=== PATIENT | male | born 1945 | race Caucasian/White ===

== ENCOUNTER 2018-02-15 00:22 | Emergency (ER) | payer OTHER ==
[2018-02-15 00:49] VITALS: BMI 32.5
--- NOTE | 2018-02-15 01:32 | PDOC ---
History of Present Illness - General Chief Complaint: Blood Pressure Problem Stated Complaint: BLOOD PRESSURE PROBLEM Time Seen by Provider: 02/15/18 01:29 History Source: Patient Exam Limitations: No Limitations - History of Present Illness Timing/Duration: momentarily (this 72 yo male ran out of his metoptolol and came to the ER) Past History - Past Medical History Home Medications: Ambulatory Orders Metoprolol Succinate 50 mg PO DAILY #5 tab.er.24h MDD 1 tab 02/15/18 - Suicide/Smoking/Psychosocial Hx Smoking History: Never smoked Have you smoked in the past 12 months: No Hx Alcohol Use: No Drug/Substance Use Hx: No Review of Systems - Review of Systems Able to Perform ROS?: Yes Is the patient limited French proficient: No Constitutional: No: Symptoms Reported, See HPI, Chills, Diaphoresis, Fever, Loss of Appetite, Malaise, Night Sweats, Weakness, Weight Stable, Unintentional Wgt. Loss, Unexplained wgt Loss, Other HEENTM: No: Symptoms Reported, See HPI, Eye Pain, Blurred Vision, Tearing, Recent change in vision, Double Vision, Cataracts, Ear Pain, Ocular Prothesis, Ear Discharge, Nose Pain, Nose Congestion, Tinnitus, Nose Bleeding, Hearing Loss , Throat Pain, Throat Swelling, Mouth Pain, Dental Problems, Difficulty Swallowing, Mouth Swelling, Other Respiratory: No: Symptoms reported, See HPI, Cough, Orthopnea, Shortness of Breath, SOB with Exertion, SOB at Rest, Stridor, Wheezing, Productive cough, Hemoptysis, Other Cardiac (ROS): No: Symptoms Reported, See HPI, Chest Pain, Edema, Irregular Heart Rate, Lightheadedness, Palpitations, Syncope, Chest Tightness, Other ABD/GI: No: Symptoms Reported, See HPI, Abdominal Distended, Abd. Pain w/ defecation, Blood Streaked Bowels, Constipated, Diarrhea, Difficulty Swallowing , Nausea, Poor Appetite, Poor Fluid Intake, Rectal Bleeding, Vomiting, Indigestion, Abdominal cramping, Tarry Stools, Other Musculoskeletal: No: Symptoms Reported, See HPI, Back Pain, Gout, Joint Pain, Joint Swelling, Muscle Pain, Muscle Weakness, Neck Pain, Joint Stiffness, Other Integumentary: No: Symptoms Reported, See HPI, Bruising, Change in Color, Change in Hair/Nails, Dryness, Erythema, Flushing, Lesions, Lumps, Pallor, Pruritus, Rash, Sweating, Other Neurological: No: Symptoms reported, See HPI, Headache, Numbness, Paresthesia, Pre-Existing Deficit, Seizure, Tingling, Tremors, Weakness, Unsteady Gait, Ataxia, Dizziness, Other *Physical Exam - Vital Signs Last Vital Signs Temp Pulse Resp BP Pulse Ox 98.2 F 70 20 174/81 H 100 02/15/18 00:42 02/15/18 00:42 02/15/18 00:42 02/15/18 00:42 02/15/18 00:42 - Physical Exam General Appearance: Yes: Nourished, Appropriately Dressed HEENT: positive: Normal Voice Neck: positive: Supple Respiratory/Chest: positive: Lungs Clear Cardiovascular: positive: Regular Rhythm, Regular Rate Gastrointestinal/Abdominal: positive: Soft Musculoskeletal: positive: Normal Inspection Extremity: positive: Normal Inspection Integumentary: positive: Normal Color, Warm Neurologic: positive: Fully Oriented, Alert, Motor Strength 5/5 Moderate Sedation - Procedure Monitoring Vital Signs: Procedure Monitoring Vital Signs Temperature 98.2 F 02/15/18 00:42 Pulse Rate 70 02/15/18 00:42 Respiratory Rate 20 02/15/18 00:42 Blood Pressure 174/81 H 02/15/18 00:42 O2 Sat by Pulse Oximetry (%) 100 02/15/18 00:42 Medical Decision Making - Medical Decision Making 02/15/18 01:33 This 72-year-old male who in out of his blood pressure medicines and called his primary care physician. He is scheduled for cystoscopy tomorrow and his primary care physician told him he had to take his blood pressure medicine tonight, and told to go to the emergency department The patient does not have any acute shortness of breath, chest pain, severe headache, nausea, vomiting or acute visual changes IMP essential hypertension *DC/Admit/Observation/Transfer Diagnosis at time of Disposition: Essential hypertension - Discharge Dispostion Disposition: HOME Condition at time of disposition: Stable - Prescriptions Prescriptions: Metoprolol Succinate 50 mg PO DAILY #5 tab.er.24h MDD 1 tab - Referrals Referrals: Taylor Ivory MD [Primary Care Provider] - - Patient Instructions Printed Discharge Instructions: DI for High Blood Pressure Additional Instructions: PLEASE FOLLOW UP WITH YOUR REGULAR PHYSICIAN - Post Discharge Activity
[2018-02-15] MEDS ORDERED: METOPROLOL TARTRATE 50 MG TABLET (FP) PO ONE (01:46)
[2018-02-15 01:48] VITALS: BP 142/100; PULSE 92; TEMP 98.1
== END 2018-02-15 01:55 | disposition home or self-care (01) ==
LOC: JER 00:22
DX: I10 Essential (primary) hypertension (principal)
CPT/HCPCS: 99281-25

== ENCOUNTER 2018-04-18 20:47 | Emergency (ER) | payer OTHER ==
--- NOTE | 2018-04-18 20:55 | PDOC ---
Rapid Medical Evaluation Time Seen by Provider: 04/18/18 20:53 Medical Evaluation: Allergies Allergy/AdvReac Type Severity Reaction Status Date / Time No Known Allergies Allergy Verified 02/15/18 01:42 04/18/18 20:53 I have performed a brief in-person evaluation of this patient. The patient presents with a chief complaint of: Urinary retention since 4pm. s/ p lithotripsy this am. He had hematuria after the lithotripsy. No other complaints today I have ordered the following: Hanson cath insertion The patient will proceed to the ED for further evaluation Discharge Disposition - Diagnosis Urinary retention - Referrals - Patient Instructions - Post Discharge Activity
[2018-04-18 21:00] VITALS: BP 163/89; PULSE 94; TEMP 98.6; BMI 31.8
--- NOTE | 2018-04-18 21:47 | PDOC ---
History of Present Illness <María Olsen - Last Filed: 04/18/18 21:50> - General History Source: Patient Exam Limitations: No Limitations - History of Present Illness Initial Comments: 04/18/18 22:02 The patient is a 72 year old male with a past medical history of prostate cancer , kidney stones, hypertension, HLD, and diabetes who presents to the emergency department for evaluation of hematuria s/p lithotripsy. Patient reports urinary retention and hematuria since 4pm after having lithotripsy procedure done this morning at [facility] by Dr. Lyle. The patient denies chest pain, shortness of breath, headache, and dizziness. Denies fevers, chills, nausea, vomiting, diarrhea, and constipation. Denies urinary urgency/frequency. Allergies: No known allergies Social History: No reported alcohol, cigarette, or drug use. Urologist: Dr. Lyle <Sonia Ledesma - Last Filed: 04/18/18 22:02> - General Chief Complaint: Urinary Problem Stated Complaint: URINARY PROBLEM Time Seen by Provider: 04/18/18 20:53 Past History - Past Medical History Cancer: Yes (prostate) COPD: No Diabetes: Yes GI Disorders: Yes HTN: Yes Hypercholesterolemia: Yes Kidney Stones: Yes Thyroid Disease: Yes - Suicide/Smoking/Psychosocial Hx Smoking History: Never smoked Have you smoked in the past 12 months: No Information on smoking cessation initiated: No Hx Alcohol Use: No Drug/Substance Use Hx: No <María Olsen Mikala - Last Filed: 04/18/18 21:50> <Sonia Ledesma - Last Filed: 04/18/18 22:02> - Past Medical History Allergies/Adverse Reactions: Allergies Allergy/AdvReac Type Severity Reaction Status Date / Time No Known Allergies Allergy Verified 02/15/18 01:42 Home Medications: Ambulatory Orders Metoprolol Succinate 50 mg PO DAILY #5 tab.er.24h MDD 1 tab 02/15/18 Review of Systems - Review of Systems Able to Perform ROS?: Yes Comments:: CONSTITUTIONAL: Absent: fever, chills, diaphoresis, generalized weakness, malaise, loss of appetite HEENT: Absent: rhinorrhea, nasal congestion, throat pain, throat swelling, difficulty swallowing, mouth swelling, ear pain, eye pain, visual Changes CARDIOVASCULAR: Absent: chest pain, syncope, palpitations, irregular heart rate, lightheadedness , peripheral edema RESPIRATORY: Absent: cough, shortness of breath, dyspnea with exertion, orthopnea, wheezing, stridor, hemoptysis GASTROINTESTINAL: Absent: abdominal pain, abdominal distension, nausea, vomiting, diarrhea, constipation, melena, hematochezia GENITOURINARY: (+)hematuria. (+)Urinary retention. Absent: dysuria, frequency, urgency, hesitancy, flank pain, genital pain MUSCULOSKELETAL: Absent: myalgia, arthralgia, joint swelling SKIN: Absent: rash, itching, pallor HEMATOLOGIC/IMMUNOLOGIC: Absent: easy bleeding, easy bruising, lymphadenopathy, frequent infections ENDOCRINE: Absent: unexplained weight gain, unexplained weight loss, heat intolerance, cold intolerance NEUROLOGIC: Absent: headache, focal weakness or paresthesias, dizziness, unsteady gait, seizure, mental status changes, bladder or bowel incontinence PSYCHIATRIC: Absent: anxiety, depression, suicidal or homicidal ideation, hallucinations. <Sonia Ledesma - Last Filed: 04/18/18 22:02> *Physical Exam - Vital Signs Last Vital Signs Temp Pulse Resp BP Pulse Ox 98.6 F 94 H 22 H 163/89 100 04/18/18 20:53 04/18/18 20:53 04/18/18 20:53 04/18/18 20:53 04/18/18 20:53 <María Olsen - Last Filed: 04/18/18 21:50> - Vital Signs Last Vital Signs Temp Pulse Resp BP Pulse Ox 98.6 F 94 H 22 H 163/89 100 04/18/18 20:53 04/18/18 20:53 04/18/18 20:53 04/18/18 20:53 04/18/18 20:53 - Physical Exam Comments: Wnwd 72 in no acute distress head ncat neck supple oropharynx no exudates Heart RRR. No gallops, murmurs, or rubs. lungs clear to auscultation bilaterally abd protuberant belly, +mcleod in place ext no e/c/c, MAEx4 skin warm and dry,no rashes neuro A&Ox3,no gross focal neuro deficits <Sonia Ledesma - Last Filed: 04/18/18 22:02> Moderate Sedation - Procedure Monitoring Vital Signs: Procedure Monitoring Vital Signs Temperature 98.6 F 04/18/18 20:53 Pulse Rate 94 H 04/18/18 20:53 Respiratory Rate 22 H 04/18/18 20:53 Blood Pressure 163/89 04/18/18 20:53 O2 Sat by Pulse Oximetry (%) 100 04/18/18 20:53 <María Olsen - Last Filed: 04/18/18 21:50> - Procedure Monitoring Vital Signs: Procedure Monitoring Vital Signs Temperature 98.6 F 04/18/18 20:53 Pulse Rate 94 H 04/18/18 20:53 Respiratory Rate 22 H 04/18/18 20:53 Blood Pressure 163/89 04/18/18 20:53 O2 Sat by Pulse Oximetry (%) 100 04/18/18 20:53 <Sonia Ledesma - Last Filed: 04/18/18 22:02> Medical Decision Making - Medical Decision Making 04/18/18 21:47 I spoke with the urologist, Dr. Lyle and he agrees the can be discharged with a Mcleod and a leg bag and if the urine is clear he'll see him on the tomorrow. Otherwise, he can see him Adin morning and remove the mcleod at that time Patient is already on antibiotics and so will need no further prescriptions at this time. Plan follow-up with his urologist, Dr. Lyle imp urinary retention s/p lithotripsy/prostate cancer <María Olsen - Last Filed: 04/18/18 21:50> *DC/Admit/Observation/Transfer <María Olsen - Last Filed: 04/18/18 21:50> - Attestations Scribe Attestion: Documentation prepared by Sonia Ledesma, acting as administrative medical director for María Olsen MD. <Sonia Ledesma - Last Filed: 04/18/18 22:02> Diagnosis at time of Disposition: Urinary retention - Discharge Dispostion Disposition: HOME Condition at time of disposition: Stable - Patient Instructions Printed Discharge Instructions: DI for Urinary Retention in Men Additional Instructions: If the urine in your bag is clear,your urologist will remove the mcleod in his office tomorrow . Otherwise see your urologist this Tuesday and have the mcleod removed then. Please take your antibiotics as already prescribed to you.
[2018-04-18] MEDS ORDERED: LIDOCAINE HCL 2% JELLY 10 ML CARTRIDGE ONE (22:16)
[2018-04-18] MEDS ORDERED: LIDOCAINE HCL 2% JELLY 10 ML CARTRIDGE UR STA (22:17)
== END 2018-04-18 23:15 | disposition home or self-care (01) ==
LOC: JER 20:47
PROC: 0T9B70Z Drainage of Bladder with Drainage Device, Via Natural or Artificial Opening (ICD-10-PCS; principal; 2018-04-18)
DX: R33.8 Other retention of urine (principal); R31.9 Hematuria, unspecified; Y83.8 Other surgical procedures as the cause of abnormal reaction of the patient, or of later complication, without mention of misadventure at the time of the procedure; Z85.46 Personal history of malignant neoplasm of prostate; N20.0 Calculus of kidney; Z87.442 Personal history of urinary calculi; I10 Essential (primary) hypertension; E78.5 Hyperlipidemia, unspecified; E11.9 Type 2 diabetes mellitus without complications; E07.9 Disorder of thyroid, unspecified
CPT/HCPCS: 51702; 99281-25

== ENCOUNTER 2018-04-22 16:50 | Emergency (ER) | payer OTHER ==
[2018-04-22 17:02] VITALS: BP 151/85; PULSE 89; TEMP 97.5; BMI 32.6
[2018-04-22] MEDS ORDERED: LIDOCAINE HCL 2% JELLY (5 ML/TUBE) ONE (17:10)
--- NOTE | 2018-04-22 17:11 | PDOC ---
History of Present Illness - General Chief Complaint: Urinary Problem Stated Complaint: follow up - History of Present Illness Initial Comments: The pt is a 73M w/ a history of prostate cancer, kidney stones, hypertension, HLD, and diabetes who presents for evaluation of urinary retention s/p lithotripsy on 04/18/2018. The patient had a mcleod placed s/p procedure which was removed yesterday morning. He states since that since that time he has only had small volume voids and trickles. Since 1200 he has not been able to void. He called his Urologist at [facility] who told him to take a flowmax and HCTZ and proceed to the ED if he did not void by 1600. He did not and thus presented here. He endorses suprapubic pain. Denies hematuria yesterday and today. 04/22/18 17:11 Past History - Past Medical History Allergies/Adverse Reactions: Allergies Allergy/AdvReac Type Severity Reaction Status Date / Time Penicillins Allergy Severe Hives Verified 04/22/18 19:04 Home Medications: Ambulatory Orders Metoprolol Succinate 50 mg PO DAILY #5 tab.er.24h MDD 1 tab 02/15/18 Ascorbate Calcium/Bioflavonoid [[place]-C 1,000 mg Tablet] 1 each PO DAILY Aspirin [ASA -] 81 mg PO DAILY 04/22/18 Atorvastatin Ca [Lipitor] 10 mg PO HS 04/22/18 Esomeprazole Magnesium [Nexium 24Hr] 40 mg PO DAILY 04/22/18 Hydrochlorothiazide 25 mg PO DAILY 04/22/18 L.acidoph,Paracasei, B.lactis [Probiotic] 1 each PO DAILY 04/22/18 Levothyroxine [Synthroid -] 150 mcg PO DAILY 04/22/18 Metformin HCl [Glucophage] 500 mg PO DAILY 04/22/18 Multivit-Min/Folic/Vit K/Lycop [Men's Daily Formula Tablet] 1 each PO DAILY 05/09 Ubidecarenone [Coq-10] 300 mg PO DAILY 04/22/18 levoFLOXacin [Levaquin] 750 mg PO DAILY 7 Days #7 tab 04/22/18 Cancer: Yes (prostate) COPD: No Diabetes: Yes GI Disorders: Yes HTN: Yes Hypercholesterolemia: Yes Kidney Stones: Yes Thyroid Disease: Yes - Surgical History Abdominal Surgery: Yes (hernia) - Immunization History Immunization Up to Date: Yes - Suicide/Smoking/Psychosocial Hx Smoking History: Never smoked Have you smoked in the past 12 months: No Hx Alcohol Use: No Drug/Substance Use Hx: No Review of Systems - Review of Systems Able to Perform ROS?: Yes Comments:: GENERAL/CONSTITUTIONAL: No fever or chills. No weakness HEAD, EYES, EARS, NOSE AND THROAT: No change in vision. No ear pain or discharge. No sore throat CARDIOVASCULAR: No chest pain or shortness of breath RESPIRATORY: Denies cough, hemoptysis GASTROINTESTINAL: No nausea, vomiting, diarrhea or constipation GENITOURINARY: per HPI MUSCULOSKELETAL: No joint or muscle swelling or pain. No neck or back pain SKIN: No rash NEUROLOGIC: No headache, vertigo, loss of consciousness, or change in strength/ sensation ENDOCRINE: No increased thirst. No abnormal weight change HEMATOLOGIC/LYMPHATIC: No anemia, easy bleeding, or history of blood clots ALLERGIC/IMMUNOLOGIC: No hives or skin allergy 04/22/18 17:10 Is the patient limited Sammarinese proficient: No *Physical Exam - Vital Signs Last Vital Signs Temp Pulse Resp BP Pulse Ox 97.5 F L 89 18 151/85 97 04/22/18 16:59 04/22/18 16:59 04/22/18 16:59 04/22/18 16:59 04/22/18 16:59 - Physical Exam Comments: GENERAL: Awake, alert, and fully oriented, in no acute distress HEAD: No signs of trauma, normocephalic, atraumatic EYES: PERRLA, EOMI, sclera anicteric, conjunctiva clear ENT: Hearing grossly normal, nares patent, oropharynx clear without exudates. Moist mucosa LUNGS: No distress, speaks full sentences, clear to auscultation bilaterally HEART: Regular rate and rhythm, normal S1 and S2, no murmurs appreciated, peripheral pulses normal and equal bilaterally ABDOMEN: Soft, mild TTP w/o rebound or guarding, normoactive bowel sounds EXTREMITIES : Normal inspection, Normal range of motion, no edema. No clubbing or cyanosis NEUROLOGICAL: Cranial nerves II through XII grossly intact. Normal speech, normal gait, no focal sensorimotor deficits SKIN: Warm, Dry 04/22/18 17:10 Moderate Sedation - Procedure Monitoring Vital Signs: Procedure Monitoring Vital Signs Temperature 97.5 F L 04/22/18 16:59 Pulse Rate 89 02/02/19 16:59 Respiratory Rate 18 04/22/18 16:59 Blood Pressure 151/85 04/22/18 16:59 O2 Sat by Pulse Oximetry (%) 97 04/22/18 16:59 ED Treatment Course - LABORATORY CBC & Chemistry Diagram: 04/22/18 17:44 Medical Decision Making - Medical Decision Making The patient is a 73M w/ history of prostate cancer, nephrolithiasis, and structural urinary retention presents for evaluation of 1d of urinary retention ED Course Mcleod inserted for U retention CMP, UA, UCx 04/22/18 18:06 UA w/ +LE, WBC 193 -Levofloxacin 750mg PO once -Rx for Levofloxacin sent to pharmacy 04/22/18 18:08 Leg bag provided BLE duplex neg for DVT (pt w/ complaint of BLE swelling for few weeks) Plan for D/C w/ PCP and Urology f/u Discharge instructions and return precautions given Patient in agreement and verbalized understanding Dispo: home 04/22/18 19:42 *DC/Admit/Observation/Transfer Diagnosis at time of Disposition: Urinary retention - Discharge Dispostion Disposition: HOME Condition at time of disposition: Improved Decision to Admit order: No - Prescriptions Prescriptions: levoFLOXacin [Levaquin] 750 mg PO DAILY 7 Days #7 tab - Referrals Referrals: Taylor Ivory MD [Primary Care Provider] - Cristiano Manuel MD [Staff Physician] - - Patient Instructions Printed Discharge Instructions: DI for Urinary Retention in Men Additional Instructions: You were seen in the Emergency Department for urinary retention. Review the handout provided at discharge. Follow up with your Urologist and PCP within the next 1-3 days. You were also found to have a UTI and given Levofloxacin in the ED and a script was sent to the pharmacy you specified. Return to the Emergency Department if you develop fevers/chills, blood in your urine, worsening symptoms, retention despite mcleod placement, or any new/ concerning symptoms. Your Cr. is also elevated to 1.9. Be sure to discuss this with your Urologist/ PCP also. - Post Discharge Activity
--- NOTE | 2018-04-22 17:18 | PDOC ---
Attending Attestation - HPI HPI: This patient is a 73 year old male with a PMHx of prostate cancer, kidney stones , hypertension, HLD, and diabetes who presents for evaluation of urinary retention s/p lithotripsy on 04/18/2018. Patient states that he had mcleod placed s/p procedure which was removed yesterday morning. He states since that since that time he complaints of trickling and small amt of urine voided. He states he last voided at noon. He called his Urologist at [facility] who told him to take a flowmax and hydrochlorothiazide and proceed to the ED if he did not void by 4pm. He currently endorses suprapubic pain. Denies hematuria yesterday and today. PCP: Taylor Ivory MD Urologist: [facility] 04/22/18 18:29 - Physicial Exam PE: GENERAL: The patient is in no acute distress. HEAD: Normal with no signs of trauma. LUNGS: Breath sounds equal, clear to auscultation bilaterally. No wheezes, and no crackles. HEART:Regular rate and rhythm, normal S1 and S2 without murmur, rub or gallop. ABDOMEN: Soft, nontender, normoactive bowel sounds. No guarding, no rebound. EXTREMITIES: Normal range of motion, b/l pedal edema. No clubbing or cyanosis. No erythema, or tenderness. NEUROLOGICAL: Cranial nerves II through XII grossly intact. Normal speech. No focal neurological deficits. MUSCULOSKELETAL: Back nontender to palpation, no CVA tenderness SKIN: Warm, Dry, normal turgor, no rashes or lesions noted. : Catheter in place with 1000 cc of urine on exam. 04/22/18 19:08 <Angie Mcfarland - Last Filed: 04/22/18 19:08> - Resident Resident Name: Juan Antonio Rivas - ED Attending Attestation I have performed the following: I have examined & evaluated the patient, The case was reviewed & discussed with the resident, I agree w/resident's findings & plan, Exceptions are as noted - Medical Decision Making 04/22/18 19:26 73 yo M s/p recent lithotrypsy S/p urinary retention prompting ER visit and mcleod placement Pt s/p cathether removal yesterday Pt has had difficulty urinating since yesterday no fevers or chills Laboratory Tests 04/22/18 04/22/18 17:34 17:44 Sodium 134 L Potassium 4.1 Chloride 99 Carbon Dioxide 21 BUN 27 H Creatinine 1.9 H Random Glucose 152 H Urine Blood 2+ H Urine Nitrite Negative Ur Leukocyte Esterase 3+ H Urine WBC (Auto) 193 Urine RBC (Auto) 34 pt reported bilateral lower extremity edema Duplex negative Of note: pt creatinine elevated It is unclear to me what his baseline is Pt given copies of his lab work Pt has his results at home from previous lab draw Pt asked to return to his Urologist on TuesdayAPR 24 Pt asked to remain hydrated Return to the ER for any other concerns or complaints Clinical impression: Urinary retention, repeat presentation UTI, repeat presentation Possible BRANDEN, initial presentation <Jennifer Wilkerson - Last Filed: 04/22/18 19:30>
[2018-04-22] MEDS ORDERED: LIDOCAINE HCL 2% JELLY (5 ML/TUBE) TP ONE (17:25)
[2018-04-22 17:55] LABS: URINE APPEARANCE CLOUDY; URINE BILIRUBIN NEGATIVE (<2.0 mg/dL); URINE COLOR YELLOW; URINE GLUCOSE (UA) NEGATIVE (NEGATIVE); URINE KETONE NEGATIVE (NEGATIVE); URINE LEUK ESTERASE 3+ (NEGATIVE); URINE NITRITE NEGATIVE (NEGATIVE); URINE PROTEIN 1+ (NEGATIVE); URINE UROBILINOGEN NEGATIVE mg/dL (0.2-1.0)
[2018-04-22 18:04] LABS: URINE BACTERIA FEW /hpf (NONE SEEN); URINE MUCUS RARE
[2018-04-22 18:10] LABS: ALBUMIN 4.2 g/dl (3.4-5.0); ALK PHOS 100 U/L (45-117); ANION GAP 13 MMOL/L (8-16); BILIRUBIN,TOTAL 1.1 mg/dL (0.2-1); BLOOD UREA NITROGEN 27 mg/dL (7-18); CALCIUM 9.2 mg/dL (8.5-10.1); CHLORIDE 99 mmol/L (98-107); CO2 21 mmol/L (21-32); CREATININE 1.9 mg/dL (0.55-1.3); GLUCOSE,RANDOM 152 mg/dL (74-106); POTASSIUM 4.1 mmol/L (3.5-5.1); SGOT/AST 23 U/L (15-37); SGPT/ALT 27 U/L (13-61); SODIUM 134 mmol/L (136-145); TOT PROT 7.2 g/dl (6.4-8.2)
[2018-04-22] MEDS ORDERED: CEFPODOXIME PROXETIL 100 MG TABLET PO ONE ×2 (18:18→19:35)
== END 2018-04-22 21:23 | disposition home or self-care (01) ==
LOC: JER 16:50
PROC: 0T9B70Z Drainage of Bladder with Drainage Device, Via Natural or Artificial Opening (ICD-10-PCS; principal; 2018-04-22)
DX: R33.8 Other retention of urine (principal); N39.0 Urinary tract infection, site not specified; R60.0 Localized edema; Z87.442 Personal history of urinary calculi; Z85.46 Personal history of malignant neoplasm of prostate; I10 Essential (primary) hypertension; E78.00 Pure hypercholesterolemia, unspecified; E11.9 Type 2 diabetes mellitus without complications; Z79.84 Long term (current) use of oral hypoglycemic drugs
CPT/HCPCS: 36415; 80053; 81003; 81015; 87077; 87086; 93970-TC; 99283-25

== ENCOUNTER 2018-04-27 12:28 | Inpatient (IN) | payer OTHER ==
--- NOTE | 2018-04-27 12:38 | PDOC ---
History of Present Illness - General Chief Complaint: Syncope/Near Syncope Stated Complaint: HYPOTENSIVE Time Seen by Provider: 04/27/18 12:35 - History of Present Illness Initial Comments: 04/27/18 12:37 73 yo M with h/o HTN, HLD, DM, prostate cancer, kidney stones s/p lithotripsy ( 04/18/18) BIBA with lightheadedness. EMs reports patient with GBS~185, SBP 130 while sitting, and 76/50 while standing. Placed on NRB, 100 % O2. Patient reports acute onset of lightheadedness, while at "[employer]," 1 hour [employer]. Patient states that he was standing in the store, felt sudden lower abdominal discomfort, nausea with retching, SOB, diaphoresis, and then proceeded to sit down. Family reports patient was verbally unresponsive, and disoriented. Symptoms lasted for 20 minutes. No identifiable triggers or alleviators. In normal state of health prior to event. Patient seen at urologist Dr. Lew Cid today mcleod catheter removal. Has not urinated since mcleod removal. Currently denies urinary complaints. Last seen in ED (04/22/18), for urinary retention following mcleod removal [facility] (04/21/18). Patient was placed on mcleod, and Levaquin 750 mg (day 5/) for positive UA. Patient denies MARQUEZ, vision change, palpitations, cough, wheezing, F,C, CP, SOB, BPR, diarrhea, constipation, lightheadedness, weakness, sensory changes. PMHx: as noted above. Denies h/o ACS/ND, stent placement, CABG, abnml stress testi, CVA/TIA. ROS: as noted SHx: Denies tobacco use, IVDA Allergies: PCN Past History - Past Medical History Allergies/Adverse Reactions: Allergies Allergy/AdvReac Type Severity Reaction Status Date / Time Penicillins Allergy Severe Hives Verified 04/27/18 12:30 Home Medications: Ambulatory Orders Metoprolol Succinate 50 mg PO DAILY #5 tab.er.24h MDD 1 tab 02/15/18 Ascorbate Calcium/Bioflavonoid [[place]-C 1,000 mg Tablet] 1 each PO DAILY Aspirin [ASA -] 81 mg PO DAILY 04/22/18 Atorvastatin Ca [Lipitor] 10 mg PO HS 04/22/18 Esomeprazole Magnesium [Nexium 24Hr] 40 mg PO DAILY 04/22/18 Hydrochlorothiazide 25 mg PO DAILY 04/22/18 L.acidoph,Paracasei, B.lactis [Probiotic] 1 each PO DAILY 04/22/18 Levothyroxine [Synthroid -] 150 mcg PO DAILY 04/22/18 Metformin HCl [Glucophage] 500 mg PO DAILY 04/22/18 Multivit-Min/Folic/Vit K/Lycop [Men's Daily Formula Tablet] 1 each PO DAILY 05/09 Ubidecarenone [Coq-10] 300 mg PO DAILY 04/22/18 levoFLOXacin [Levaquin] 750 mg PO DAILY 7 Days #7 tab 04/22/18 Omeprazole 20 mg PO DAILY 04/27/18 Cancer: Yes (prostate) COPD: No Diabetes: Yes GI Disorders: Yes HTN: Yes Hypercholesterolemia: Yes Kidney Stones: Yes Thyroid Disease: Yes - Surgical History Abdominal Surgery: Yes (hernia) - Immunization History Immunization Up to Date: Yes - Suicide/Smoking/Psychosocial Hx Smoking History: Never smoked Have you smoked in the past 12 months: No Hx Alcohol Use: No Drug/Substance Use Hx: No Review of Systems - Review of Systems Comments:: 04/27/18 12:37 GENERAL/CONSTITUTIONAL: No fever or chills. No weakness. HEAD, EYES, EARS, NOSE AND THROAT: No change in vision. No ear pain or discharge. No sore throat. CARDIOVASCULAR: No chest pain or shortness of breath RESPIRATORY: No cough, wheezing, or hemoptysis. GASTROINTESTINAL: + nausea. No vomiting, diarrhea or constipation. GENITOURINARY: No dysuria, frequency, or change in urination. MUSCULOSKELETAL: No joint or muscle swelling or pain. No neck or back pain. SKIN: No rash NEUROLOGIC: + lightheadedness. No headache, vertigo, loss of consciousness, or change in strength/sensation. ENDOCRINE: No increased thirst. No abnormal weight change HEMATOLOGIC/LYMPHATIC: No anemia, easy bleeding, or history of blood clots. ALLERGIC/IMMUNOLOGIC: No hives or skin allergy. *Physical Exam - Vital Signs Last Vital Signs Temp Pulse Resp BP Pulse Ox 98.6 F 59 L 14 105/73 97 04/27/18 17:20 04/27/18 17:20 04/27/18 17:20 04/27/18 17:20 04/27/18 17:20 - Physical Exam Comments: 04/27/18 12:37 GENERAL: Awake, alert, and fully oriented, in no acute distress HEAD: No signs of trauma, normocephalic, atraumatic EYES: PERRLA, EOMI, sclera anicteric, conjunctiva clear ENT: Hearing grossly normal, nares patent, oropharynx clear without exudates. Moist mucosa NECK: Normal ROM, supple, no lymphadenopathy, JVD, or masses LUNGS: No distress, speaks full sentences, clear to auscultation bilaterally HEART: Regular rate and rhythm, normal S1 and S2, no murmurs, rubs or gallops, peripheral pulses normal and equal bilaterally. ABDOMEN: + Suprapubic ttp. Soft, NDS, normoactive bowel sounds. No guarding, no rebound. No masses. Neg CVA ttp. EXTREMITIES : Normal inspection, Normal range of motion, no edema. No clubbing or cyanosis. NEUROLOGICAL: Cranial nerves II through XII grossly intact. Normal speech, normal gait, no focal sensorimotor deficits SKIN: Warm, Dry, normal turgor, no rashes or lesions noted Heart Score/ECG Review - History History: Slightly suspicious - Electrocardiogram EKG: Non specific repolarization disturbance - Age Age: >/= 65 - Risk Factors Risk Factors Heart Score: Yes Hx Hypercholesterolemia, Yes Hx Hypertension, Yes Positive family hx of cardiac disease, Yes Hx Obesity Based on the list above the patient has:: >/=3 risk factors or Hx atherosclerotic disease - Troponin Troponin: </= normal limit - Score Heart Score - Total: 5 Moderate Sedation - Procedure Monitoring Vital Signs: Procedure Monitoring Vital Signs Temperature 98.6 F 04/27/18 17:20 Pulse Rate 59 L 04/27/18 17:20 Respiratory Rate 14 04/27/18 17:20 Blood Pressure 105/73 04/27/18 17:20 O2 Sat by Pulse Oximetry (%) 97 04/27/18 17:20 ED Treatment Course - LABORATORY CBC & Chemistry Diagram: 04/27/18 12:50 04/27/18 12:50 - ADDITIONAL ORDERS Additional order review: Laboratory Results 04/27/18 04/27/18 12:50 12:50 Sodium 136 Potassium 4.4 Chloride 100 Carbon Dioxide 28 Anion Gap 8 BUN 33 H Creatinine 1.8 H Creat Clearance w eGFR 36.97 Random Glucose 168 H Calcium 9.4 Total Bilirubin 0.5 AST 14 L ALT 21 Alkaline Phosphatase 99 Creatine Kinase 60 Troponin I < 0.02 Total Protein 7.1 Albumin 3.8 04/27/18 12:50 RBC 3.21 L MCV 93.5 MCHC 35.2 RDW 14.7 MPV 8.3 Neutrophils % 81.3 Lymphocytes % 11.8 Monocytes % 4.9 Eosinophils % 1.2 Basophils % 0.8 - RADIOLOGY Radiology Studies Ordered: Category Date Time Status HEAD CT WITHOUT CONTRAST [CT] Stat CT Scan 04/27/18 13:20 Completed - Medications Given in the ED: ED Medications Discontinued Medications Generic Name Dose Route Start Last Admin Trade Name Freq PRN Reason Stop Dose Admin Sodium Chloride 1,000 mls @ 1,000 mls/hr 04/27/18 13:35 04/27/18 13:58 Normal Saline - IV 04/27/18 14:34 1,000 mls/hr ASDIR STA Administration Lidocaine HCl 10 ml 04/27/18 16:40 04/27/18 16:55 Xylocaine 2% Uro-Jet UR 04/27/18 16:41 10 ml ONCE ONE Administration Medical Decision Making - Medical Decision Making 04/27/18 12:40 73 yo M with h/o HTN, HLD, DM, prostate cancer, kidney stones s/p lithotripsy and (04/18/18) BIBA with lightheadedness. Vitals wnl, AF, A&Ox3. + suprapubic discomfort and fullness. Patient has not urinated since this morning mcleod removal. Will asses for urinary retention. Denies F/C, CP, SOB, BPR, diarrhea, constipation, lightheadedness, weakness, sensory changes. Will assess for VBI/ TIA, cardiac dysarrythmias, hypoglycemia, electrolyte abnml, metabolic and toxic derangements, acid-base disturbances, infection. Possible vasovagal syncope. Will provide IVF and reasses. ED Course: 04/27/18 14:08 CBC: Unremarkable BUN/Cr: 33/1.8 BS~168 Trop: Neg 04/27/18 15:27 CTH: No acute pathology EKG: Sinus bradycardia 55, 1st degree AV block, WI interval 246, with absent OPAL, STD. Nml axis. Nml R wave progression, absent Q waves. elevated heart score~5 Plan to admit to tele 04/27/18 15:28 PMD: Rmsergeiblade Dianelys Contacted answering service, awaiting call back 04/27/18 15:52 Patient endorsed and admitted to Dr. Romano. Patient endorsed to Dr. elw cid who agrees with mcleod catheter placement. ( [id number]) 04/27/18 16:56 Patient PVR U/S with absent bladder distension. Bladder collapsed UA: 2+ Blood, Trace LE, Neg nitrite, 8 wbc, 68 RBC *DC/Admit/Observation/Transfer Diagnosis at time of Disposition: Lightheadedness, Urinary retention - Discharge Dispostion Condition at time of disposition: Stable Decision to Admit order: Yes - Referrals - Patient Instructions - Post Discharge Activity - Attestations Physician Attestion: 04/27/18 12:38 I attest to the information provided in this note.
[2018-04-27 12:42] VITALS: BMI 38.9
[2018-04-27 13:18] LABS: BASO % 0.8 % (0-2.0); EOS % 1.2 % (0-4.5); HEMATOCRIT 30.1 % (35.4-49); HEMOGLOBIN 10.6 GM/dL (11.7-16.9); LYMPH % 11.8 % (8-40); MCH 32.9 pg (25.7-33.7); MCHC 35.2 g/dl (32.0-35.9); MEAN CELL VOLUME 93.5 fl (80-96); MEAN PLT VOLUME 8.3 fl (7.5-11.1); MONO % 4.9 % (3.8-10.2); NEUT % 81.3 % (42.8-82.8); PLATELET COUNT 168 K/MM3 (134-434); RBC 3.21 M/mm3 (4.00-5.60); RDW 14.7 % (11.9-15.9); WHITE BLOOD COUNT 8.2 K/mm3 (4.0-10.0)
[2018-04-27] MEDS ORDERED: SODIUM CHLORIDE 1,000 ML IV STA (13:35)
[2018-04-27 13:39] LABS: ALBUMIN 3.8 g/dl (3.4-5.0); ALK PHOS 99 U/L (45-117); ANION GAP 8 MMOL/L (8-16); BILIRUBIN,TOTAL 0.5 mg/dL (0.2-1); BLOOD UREA NITROGEN 33 mg/dL (7-18); CALCIUM 9.4 mg/dL (8.5-10.1); CHLORIDE 100 mmol/L (98-107); CO2 28 mmol/L (21-32); CREATININE 1.8 mg/dL (0.55-1.3); GLUCOSE,RANDOM 168 mg/dL (74-106); POTASSIUM 4.4 mmol/L (3.5-5.1); SGOT/AST 14 U/L (15-37); SGPT/ALT 21 U/L (13-61); SODIUM 136 mmol/L (136-145); TOT PROT 7.1 g/dl (6.4-8.2)
--- NOTE | 2018-04-27 13:40 | PDOC ---
Attending Attestation - HPI HPI: 04/27/18 13:45 The patient is a 73 year old male with a significant medical history of HTN, HLD , DM, prostate cancer, kidney stones s/p lithotripsy (04/18/18) BIBA after sudden onset of lightheadedness followed by syncope today. Pt states he was at the vet about 1 hour prior to arrival when he felt sudden lower abdominal discomfort, nausea with retching, SOB, diaphoresis, and then proceeded to sit down. Family reports the patient was verbally unresponsive and when he began to wake was disoriented which all lasted for about 20 minutes. Secondarily, he states he was seen at urologist Dr. Lew Bah today and had mcleod catheter removal, but has not urinated since mcleod removal. Patient denies MARQUEZ, vision change, palpitations, cough, wheezing, F,C, CP, SOB, BPR, diarrhea, constipation, lightheadedness, weakness, sensory changes. SHx: Denies tobacco use, IVDA - Physicial Exam PE: 04/27/18 13:48 Vitals: Triage vital signs reviewed General Appearance: No acute distress, well nourished, well developed Head: Atraumatic Eyes: Pupils equal reactive round, extraocular movement intact Neck: Supple; No nuchal rigidity Chest Wall: Nontender Cardiac: Regular rate and rhythm, no murmurs, no rubs, no gallops Lungs: Clear to auscultation bilateral, good air movement bilaterally Abdomen: Soft, nondistended, normal bowel sounds, nontender to palpation Genitourinary: Rectal: Exam deferred Extremities: Full range of motion to all extremities, no cyanosis, clubbing, or edema Skin: Warm and dry, no rashes or lesions, no rash, no petechiae Neuro: AOX3; Cranial Nerves 2-12 grossly intact, Strength intact to all extremities, Sensation intact to all extremities, Psych: Normal mood, normal affect - Medical Decision Making 04/27/18 15:45 Dr. Romano was called at this time. awaiting call back. 04/27/18 15:[address] Romano at this time. EXAM#: TYPE/EXAM: RESULT: [id number] CT/HEAD CT WITHOUT CONTRAST E.5set Nandiv-[address] scan of the brain without intravenous contrast. No prior is available for comparison. There is [id number] volume loss. The ventricles and basal cisterns appear unremarkable. No mass lesion, acute infarct or intracranial hemorrhage are identified. There is no shift of the midline structures. Mild to moderate deviation of the nasal septum to the right. Minimal mucosal thickening in the ethmoid air cells. Both orbits appear unremarkable. The mastoid air cells are well aerated and the calvarium is intact IMPRESSION: Uhvm-ar-strzkvef volume loss without evidence of acute intracranial pathology. Correlate clinically to determine further evaluation and follow-up. Reported By: Radha Cheema MD 04/27/18 1503 <Tri Moran - Last Filed: 04/27/18 16:03> - Resident Resident Name: Osvaldo Cabrera - ED Attending Attestation I have performed the following: I have examined & evaluated the patient, The case was reviewed & discussed with the resident, I agree w/resident's findings & plan, Exceptions are as noted - Medical Decision Making Syncopal episode in the context of having Mcleod catheter removed this morning given 20 minute loss of consciousness we'll admit to telemetry for further management. May be secondary to bladder spasm or pain however given patient's age and comorbidities we'll observe for telemetry monitoring Dr.El Wang urology consulted We'll admit to medicine for further management04/27/18 16:41 <Joe Davila - Last Filed: 04/27/18 16:41> Heart Score/ECG Review - ECG Impressions Comment:: 04/27/18 16:41 EKG performed at 1412 demonstrates normal sinus rhythm no ST elevations or T- wave inversions Interpreted by me. <Joe Davila - Last Filed: 04/27/18 16:41> Attestations - Attestations 04/27/18 13:48 Documentation prepared by Tri Moran, acting as medical transport specialist for Joe Davila MD <Tri Moran - Last Filed: 04/27/18 16:03>
[2018-04-27] MEDS ORDERED: LIDOCAINE HCL 2% JELLY 10 ML CARTRIDGE ONE (16:33)
[2018-04-27] MEDS ORDERED: LIDOCAINE HCL 2% JELLY 10 ML CARTRIDGE UR ONE (16:40)
--- NOTE | 2018-04-27 16:40 | EKG ---
Test Reason : Blood Pressure : / mmHG Vent. Rate : 055 BPM Atrial Rate : 055 BPM P-R Int : 246 ms QRS Dur : 102 ms QT Int : 430 ms P-R-T Axes : 051 054 036 degrees QTc Int : 411 ms SINUS BRADYCARDIA WITH 1ST DEGREE A-V BLOCK OTHERWISE NORMAL ECG WHEN COMPARED WITH ECG OF 23-MAY-2002 11:11, NO SIGNIFICANT CHANGE WAS FOUND Confirmed by DEEPTHI BERRY, GHASSAN ([id number]) on 04/27/2018 4:39:35 PM Referred By: Confirmed By:GHASSAN LACEY MD
--- NOTE | 2018-04-27 16:53 | HP ---
Admitting History and Physical - Admission Chief Complaint: came in for urinary retention and syncopal event History of Present Illness: 73 yr old male with h/o prostate cancer came in today bc he could not urinate after elaving dr morales office in morning he went to see him and mcleod cath was removed, he was in er twice in last week for urinary retention and mcleod cath was inserted today he went to [facility] office and over there he broke out in cold sweats and became incoherrent his eyes were fixated says he was not communication for 5 minutes , 911 was called and brought to er History Source: Patient - Past Medical History Heme/Onc: Yes: Other (prostate cancer) - Smoking History Smoking history: Never smoked Have you smoked in the past 12 months: No - Alcohol/Substance Use Hx Alcohol Use: No Home Medications - Allergies Allergies/Adverse Reactions: Allergies Allergy/AdvReac Type Severity Reaction Status Date / Time Penicillins Allergy Severe Hives Verified 04/27/18 12:30 - Home Medications Home Medications: Ambulatory Orders Metoprolol Succinate 50 mg PO DAILY #5 tab.er.24h MDD 1 tab 02/15/18 Ascorbate Calcium/Bioflavonoid [[place]-C 1,000 mg Tablet] 1 each PO DAILY Aspirin [ASA -] 81 mg PO DAILY 04/22/18 Atorvastatin Ca [Lipitor] 10 mg PO HS 04/22/18 Esomeprazole Magnesium [Nexium 24Hr] 40 mg PO DAILY 04/22/18 Hydrochlorothiazide 25 mg PO DAILY 04/22/18 L.acidoph,Paracasei, B.lactis [Probiotic] 1 each PO DAILY 04/22/18 Levothyroxine [Synthroid -] 150 mcg PO DAILY 04/22/18 Metformin HCl [Glucophage] 500 mg PO DAILY 04/22/18 Multivit-Min/Folic/Vit K/Lycop [Men's Daily Formula Tablet] 1 each PO DAILY 05/09 Ubidecarenone [Coq-10] 300 mg PO DAILY 04/22/18 levoFLOXacin [Levaquin] 750 mg PO DAILY 7 Days #7 tab 04/22/18 Omeprazole 20 mg PO DAILY 04/27/18 Physical Examination Vital Signs: Vital Signs Temperature 98.6 F 04/27/18 12:33 Pulse Rate 63 04/27/18 12:33 Respiratory Rate 16 04/27/18 12:33 Blood Pressure 130/80 04/27/18 12:33 O2 Sat by Pulse Oximetry (%) 99 04/27/18 12:33 Labs: CBC, BMP 04/27/18 12:50 04/27/18 12:50 Imaging - Results Cat Scan: Report Reviewed Problem List - Problems (1) Lightheadedness Assessment/Plan: tele cardiology echo neurology orthostatic vitals dvt ppx Code(s): R42 - DIZZINESS AND GIDDINESS (2) Urinary retention Assessment/Plan: [facility] urology Code(s): R33.9 - RETENTION OF URINE, UNSPECIFIED (3) Hypothyroid Assessment/Plan: tsh synthroid Code(s): E03.9 - HYPOTHYROIDISM, UNSPECIFIED
[2018-04-27 17:15] LABS: URINE APPEARANCE SLCLOUDY; URINE BILIRUBIN NEGATIVE (<2.0 mg/dL); URINE COLOR YELLOW; URINE GLUCOSE (UA) NEGATIVE (NEGATIVE); URINE KETONE NEGATIVE (NEGATIVE); URINE LEUK ESTERASE TRACE (NEGATIVE); URINE NITRITE NEGATIVE (NEGATIVE); URINE PROTEIN NEGATIVE (NEGATIVE); URINE UROBILINOGEN NEGATIVE mg/dL (0.2-1.0)
[2018-04-27 17:17] LABS: URINE BACTERIA RARE /hpf (NONE SEEN); URINE MUCUS RARE
[2018-04-27] MEDS ORDERED: HEPARIN NA (PORCINE) 5,000 UNITS/ML 1ML VIAL SQ SCH (22:00)
[2018-04-27] MEDS: ATORVASTATIN CA 10 MG TABLET (FP) PO SCH (22:51)
[2018-04-27] MEDS: HEPARIN NA (PORCINE) 5,000 UNITS/ML 1ML VIAL SQ SCH ×3 (22:51→23:13)
[2018-04-27] MEDS: INSULIN SLIDING SCALE (NOVOLOG) 1 VIAL SQ SCH (22:52)
[2018-04-27] MEDS: levoFLOXacin 500 MG, levoFLOXacin 250 MG PO SCH (22:52)
[2018-04-27] MEDS: LORATADINE 10 MG TABLET PO SCH (22:53)
[2018-04-28] MEDS ORDERED: MELATONIN 5 MG TABLETS PO ONE (02:10)
[2018-04-28 06:31] LABS: BASO % 0.6 % (0-2.0); EOS % 2.4 % (0-4.5); HEMATOCRIT 28.3 % (35.4-49); LYMPH % 24.7 % (8-40); MCHC 35.5 g/dl (32.0-35.9); MEAN PLT VOLUME 8.8 fl (7.5-11.1); MONO % 7.2 % (3.8-10.2); NEUT % 65.1 % (42.8-82.8); PLATELET COUNT 152 K/MM3 (134-434); RBC 3.04 M/mm3 (4.00-5.60); RDW 14.5 % (11.9-15.9); WHITE BLOOD COUNT 7.3 K/mm3 (4.0-10.0)
[2018-04-28] MEDS: levoFLOXacin 500 MG, levoFLOXacin 250 MG PO SCH (06:46)
[2018-04-28] MEDS: INSULIN SLIDING SCALE (NOVOLOG) 1 VIAL SQ SCH ×4 (06:46→21:23)
[2018-04-28] MEDS: LEVOTHYROXINE NA 150 MCG TABLET PO SCH (06:47)
[2018-04-28 06:59] LABS: CHOLESTEROL 110 mg/dL (50-200); HDL CHOLESTEROL 33 mg/dL (40-60); TRIGLYCERIDES 128 mg/dL (0-150)
[2018-04-28 07:12] LABS: ALBUMIN 3.8 g/dl (3.4-5.0); ALK PHOS 91 U/L (45-117); ANION GAP 9 MMOL/L (8-16); BILIRUBIN,TOTAL 0.6 mg/dL (0.2-1); BLOOD UREA NITROGEN 29 mg/dL (7-18); CALCIUM 9.3 mg/dL (8.5-10.1); CHLORIDE 100 mmol/L (98-107); CO2 27 mmol/L (21-32); CREATININE 1.6 mg/dL (0.55-1.3); GLUCOSE,RANDOM 113 mg/dL (74-106); MAGNESIUM 1.7 mg/dL (1.8-2.4); PHOSPHOROUS 4.2 mg/dL (2.5-4.9); SGOT/AST 12 U/L (15-37); SGPT/ALT 19 U/L (13-61); SODIUM 136 mmol/L (136-145)
[2018-04-28] MEDS ORDERED: TAMSULOSIN HCL 0.4 MG CAP PO SCH (08:30)
[2018-04-28] MEDS ORDERED: LIDOCAINE HCL 2% JELLY 10 ML CARTRIDGE UR PRN (08:32)
--- NOTE | 2018-04-28 08:42 | PN ---
Progress Note, Physician - Current Medication List Current Medications: Active Medications Aspirin (Asa -) 81 mg PO DAILY [facility] Atorvastatin Calcium (Lipitor -) 10 mg PO [facility] Last Admin: 04/27/18 22:51 Dose: 10 mg Heparin Sodium (Porcine) (Heparin -) 5,000 unit SQ BID [facility] Last Admin: 04/27/18 23:13 Dose: 5,000 unit Insulin Aspart (Novolog Vial Sliding Scale -) 1 vial SQ ACHS [facility]; Protocol Last Admin: 04/28/18 06:46 Dose: Not Given Levofloxacin 500 mg/ (Levofloxacin 250 mg) 750 mg PO DAILY@2100 [facility] Stop: 04/29/18 20:59 Levothyroxine Sodium (Synthroid -) 150 mcg PO DAILY@0700 [facility] Last Admin: 04/28/18 06:47 Dose: 150 mcg Lidocaine (Lidoderm Patch -) 1 patch TP DAILY [facility] Lidocaine HCl (Xylocaine 2% Uro-Jet) 1 ml UR QID PRN PRN Reason: PAIN Loratadine (Claritin -) 10 mg PO [facility] Last Admin: 04/27/18 22:53 Dose: Not Given Miscellaneous (Lidoderm Patch Removal) 1 each MC DAILY@2200 [facility] Pantoprazole Sodium (Protonix -) 40 mg PO DAILY [facility] Tamsulosin HCl (Flomax -) 0.4 mg PO DAILY@0830 [facility] Last Admin: 04/28/18 08:30 Dose: Not Given - Objective Vital Signs: Vital Signs Temperature 98.5 F 04/28/18 08:26 Pulse Rate 102 H 04/28/18 08:26 Respiratory Rate 18 04/28/18 08:26 Blood Pressure 138/87 04/28/18 08:26 O2 Sat by Pulse Oximetry (%) 96 04/28/18 08:21 Cardiovascular: Yes: Regular Rate and Rhythm Respiratory: Yes: Regular, CTA Bilaterally Gastrointestinal: Yes: Normal Bowel Sounds, Soft Labs: CBC, BMP 04/28/18 05:30 04/28/18 05:30 Problem List - Problems (1) Lightheadedness Assessment/Plan: -Probably vasovagal monitor echo cardio Code(s): R42 - DIZZINESS AND GIDDINESS (2) Prostate cancer Code(s): C61 - MALIGNANT NEOPLASM OF PROSTATE (3) Urinary retention Assessment/Plan: d/w urolgy--will need turp cardio clearance stress test Code(s): R33.9 - RETENTION OF URINE, UNSPECIFIED (4) Essential hypertension Assessment/Plan: Vital Signs Period Temp Pulse Resp BP Sys/Monreal Pulse Ox Last 24 Hr 98.0 F-98.6 F 57-105 14-20 104-152/52-91 96-97 Code(s): I10 - ESSENTIAL (PRIMARY) HYPERTENSION
--- NOTE | 2018-04-28 08:42 | CON.GU ---
Consult Consult Specialty:: urology Referred by:: Dianelys Reason for Consultation:: CAP/acute urinary retention/s/p syncopal episode - History of Present Illness Chief Complaint: CAP/urinary retention History of Present Illness: Patient is a 73 year old male with history of CAP s/p lithotripsy of bladder stone and uti performed at another medical facility. The patient went into urinary retention. Patient was given another trial of voiding yesterday. Catheter was removed in my office and he subsequently had a hypotensive episode. The patient later had a catheter placed for recurrent urinary retention. Patient is taking rapaflo 8 mg daily. He denies gross hematuria, flank pain, nausea or vomiting. - History Source History Provided By: Patient Limitations to Obtaining History: No Limitations - Alcohol/Substance Use Hx Alcohol Use: No - Smoking History Smoking history: Never smoked Have you smoked in the past 12 months: No Home Medications - Allergies Allergies/Adverse Reactions: Allergies Allergy/AdvReac Type Severity Reaction Status Date / Time Penicillins Allergy Severe Hives Verified 04/27/18 12:30 - Home Medications Home Medications: Ambulatory Orders Metoprolol Succinate 50 mg PO DAILY #5 tab.er.24h MDD 1 tab 02/15/18 Ascorbate Calcium/Bioflavonoid [[place]-C 1,000 mg Tablet] 1 each PO DAILY Aspirin [ASA -] 81 mg PO DAILY 04/22/18 Atorvastatin Ca [Lipitor] 10 mg PO HS 04/22/18 Esomeprazole Magnesium [Nexium 24Hr] 40 mg PO DAILY 04/22/18 Hydrochlorothiazide 25 mg PO DAILY 04/22/18 L.acidoph,Paracasei, B.lactis [Probiotic] 1 each PO DAILY 04/22/18 Levothyroxine [Synthroid -] 150 mcg PO DAILY 04/22/18 Metformin HCl [Glucophage] 500 mg PO DAILY 04/22/18 Multivit-Min/Folic/Vit K/Lycop [Men's Daily Formula Tablet] 1 each PO DAILY 05/09 Ubidecarenone [Coq-10] 300 mg PO DAILY 04/22/18 levoFLOXacin [Levaquin] 750 mg PO DAILY 7 Days #7 tab 04/22/18 Levocetirizine Dihydrochloride 5 mg PO HS 04/27/18 Omeprazole 20 mg PO DAILY 04/27/18 Silodosin [Rapaflo] 8 mg PO HS 04/27/18 Physical Exam- Vital Signs: Vital Signs Temperature 98.5 F 04/28/18 08:26 Pulse Rate 102 H 04/28/18 08:26 Respiratory Rate 18 04/28/18 08:26 Blood Pressure 138/87 04/28/18 08:26 O2 Sat by Pulse Oximetry (%) 96 04/28/18 08:21 Constitutional: Yes: Well Nourished, No Distress, Calm Eyes: Yes: WNL, Conjunctiva Clear, EOM Intact, PERRL HENT: Yes: WNL, Atraumatic Neck: Yes: WNL, Supple, Trachea Midline Cardiovascular: Yes: WNL, Regular Rate and Rhythm Respiratory: Yes: WNL, Regular Gastrointestinal: Yes: WNL, Normal Bowel Sounds, Soft Renal/: Yes: WNL Kidneys: Yes: WNL Pelvis: Yes: WNL Testicles: Yes: WNL Scrotum: Yes: WNL Penis: Yes: WNL (mcleod draining clear urine) Prostate Exam: Yes: Swollen (80 + gram prostate with asymmetry and mild induration) Labs: CBC, BMP 04/28/18 05:30 04/28/18 05:30 Assessment/Plan impression prostate cancer urinary retention acute renal insufficiency bph plan discussed TURP and subsequent RT for CAP x 25 minutes await cardiac clearance
[2018-04-28] MEDS: HEPARIN NA (PORCINE) 5,000 UNITS/ML 1ML VIAL SQ SCH ×2 (09:51→21:21)
[2018-04-28] MEDS: PANTOPRAZOLE 40 MG TABLET (FP) PO SCH (09:52)
[2018-04-28] MEDS: LIDOCAINE 5% TOPICAL PATCH TP SCH (09:52)
[2018-04-28] MEDS ORDERED: levoFLOXacin 750 MG TABLET PO SCH (10:00)
[2018-04-28] MEDS ORDERED: ASPIRIN 81 MG CHEWABLE TABLETS PO SCH (10:00)
--- NOTE | 2018-04-28 11:53 | ECHO ---
Name: MARKEL MODI Exam:Adult Echocardiogram Study Date: 04/28/2018 10:23 AM Age: 73 yrs Reason For Study: Wall Motion Height: 68 in Weight: 256 lb BSA: 2.3 m2 MMode/2D Measurements & Calculations IVSd: 1.3 cm Ao root diam: 3.2 cm LVIDd: 5.1 cm LA dimension: 3.8 cm LVIDs: 3.0 cm LVPWd: 1.5 cm LVPWs: 1.7 cm EDV(Teich): 125.8 ml ESV(Teich): 36.3 ml LVOT diam: 2.1 cm RV S Charlie: 18.6 cm/sec Doppler Measurements & Calculations MV E max charlie: 63.7 cm/sec Ao V2 max: 147.7 cm/sec MV A max charlie: 88.4 cm/sec Ao max P.7 mmHg MV E/A: 0.72 AI P1/2t: 373.5 msec MV dec time: 0.11 sec LUIS ALFREDO(V,D): 2.2 cm2 AI max charlie: 417.1 cm/sec LV V1 max P.3 mmHg AI max P.6 mmHg LV V1 max: 90.3 cm/sec AI dec slope: 327.1 cm/sec2 TR max charlie: 196.7 cm/sec PA V2 max: 110.6 cm/sec TR max P.5 mmHg PA max P.9 mmHg Med Peak E' Charlie: 11.2 cm/sec Med E/e': 5.7 Lat Peak E' Charlie: 10.6 cm/sec Lat E/e': 6.0 Procedure The study was technically difficult with many images being suboptimal in quality. Left Ventricle Left ventricular systolic function is grossly normal. The transmitral spectral Doppler flow pattern i s suggestive of impaired LV relaxation. Right Ventricle The right ventricle is normal in size and function. The right ventricular systolic function is grossl y normal. Atria The left atrium is mildly dilated. Mitral Valve The mitral valve is grossly normal. There is no mitral valve stenosis. There is trace to mild mitral regurgitation. Tricuspid Valve The tricuspid valve is normal in structure and function. There is mild tricuspid regurgitation. Aortic Valve The aortic valve is not well visualized. Hemodynamically significant valvular aortic stenosis cannot be excluded. Mild aortic regurgitation. Pulmonic Valve The pulmonic valve is not well seen, but is grossly normal. There is no pulmonic valvular stenosis. Great Vessels The aortic root is normal size. Pericardium/Pleura There is no pericardial effusion. Interpretation Summary The study was technically difficult with many images being suboptimal in quality. Left ventricular systolic function is grossly normal. The transmitral spectral Doppler flow pattern is suggestive of impaired LV relaxation. The right ventricle is normal in size and function. The left atrium is mildly dilated. There is trace to mild mitral regurgitation. There is mild tricuspid regurgitation. The aortic valve is not well visualized. Mild aortic regurgitation. The aortic root is normal size. There is no pericardial effusion. MD Zeng *Mimi 04/28/2018 11:52 AM
--- NOTE | 2018-04-28 13:25 | EKG ---
Test Reason : Blood Pressure : / mmHG Vent. Rate : 077 BPM Atrial Rate : 077 BPM P-R Int : 238 ms QRS Dur : 102 ms QT Int : 392 ms P-R-T Axes : 035 020 042 degrees QTc Int : 443 ms SINUS RHYTHM WITH 1ST DEGREE A-V BLOCK OTHERWISE NORMAL ECG WHEN COMPARED WITH ECG OF 27-APR-2018 14:12, NO SIGNIFICANT CHANGE WAS FOUND Confirmed by ANGELINA BERRY, JANNET ([id number]) on 04/28/2018 1:25:37 PM Referred By: Confirmed By:JANNET ALFARO MD
--- NOTE | 2018-04-28 13:42 | CONSULT ---
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 He is here after an episode of "lightheadedness" he experienced while at a aquatic habitat biologist's office. He describes abdominal discomfort, "breaking out into a cold sweat" and his face becoming pale. He claims he did NOT lose consciousness but His notes the witnessed episode to have lasted approximately 3 minutes and that he was unable to respond to her appropriately during that time. Mr. Zamora reports multiple, similar, episodes while straining at bowel movements when constipated and an initial episode about three years ago following a dental extraction. PMHX: HTN, HLD, DM, prostate cancer with obstructive uropathy, bladder stones s/ p lithotripsy, recurrent UTI, GERD Medications: metoprolol, asa 81, atorvastatin, esomeprazole, levothyroxine, metformin, levofloxacin, omeprazole Ct of head reviewed: Mild, diffuse atrophy and microvascular changes Labs: TSH 0.99 ERIKA: (-) bruits, no evidence of head trauma, mcleod in place BP's 120-150/80-90 P=87-105 Neuro Exam: Mentation/speech: Normal CN II-XII: EOMI without nystagmus Motor: No drift. Strength normal Reflexes normal including AJ's. Toes downgoing Sensation: reduced vibration feet. 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 SUGGEST: Check orthostatic BP's. Agree with telemetry ? Tilt table testing. Neuro f/u for NCS/EMG in eval of PN Thank you very much. Mumtaz Kelly MD
--- NOTE | 2018-04-28 14:13 | CON.CARD ---
Consult Consult Specialty:: cardiology Referred by:: Pradip Romano Reason for Consultation:: Syncope - History of Present Illness Chief Complaint: Syncope History of Present Illness: The patient is a 73-year-old man with a history of diabetes, hypertension, hyperlipidemia, prostate cancer, nephrolithiasis, status post lithotripsy, now admitted with dizziness, lightheadedness, and near syncope. Found to be orthostatic. Prior to the event the patient had a urinary catheter removed. The patient is currently back to his baseline. Denies chest pains and shortness of breath. No palpitations. An echocardiogram that was done earlier today showed that both ventricles are functioning normally. There were no other clinically important findings on the echo. The ECG showed sinus rhythm without any ST changes. - History Source History Provided By: Patient, Medical Record Limitations to Obtaining History: No Limitations - Past Medical History Cardio/Vascular: Yes: HTN Renal/: Yes: Renal Inusuff Heme/Onc: Yes: Other (prostate cancer) - Alcohol/Substance Use Hx Alcohol Use: No - Smoking History Smoking history: Never smoked Have you smoked in the past 12 months: No Home Medications - Allergies Allergies/Adverse Reactions: Allergies Allergy/AdvReac Type Severity Reaction Status Date / Time Penicillins Allergy Severe Hives Verified 04/27/18 12:30 - Home Medications Home Medications: Ambulatory Orders Metoprolol Succinate 50 mg PO DAILY #5 tab.er.24h MDD 1 tab 02/15/18 Ascorbate Calcium/Bioflavonoid [[place]andria-C 1,000 mg Tablet] 1 each PO DAILY Aspirin [ASA -] 81 mg PO DAILY 04/22/18 Atorvastatin Ca [Lipitor] 10 mg PO HS 04/22/18 Esomeprazole Magnesium [Nexium 24Hr] 40 mg PO DAILY 04/22/18 Hydrochlorothiazide 25 mg PO DAILY 04/22/18 L.acidoph,Paracasei, B.lactis [Probiotic] 1 each PO DAILY 04/22/18 Levothyroxine [Synthroid -] 150 mcg PO DAILY 04/22/18 Metformin HCl [Glucophage] 500 mg PO DAILY 04/22/18 Multivit-Min/Folic/Vit K/Lycop [Men's Daily Formula Tablet] 1 each PO DAILY 05/09 Ubidecarenone [Coq-10] 300 mg PO DAILY 04/22/18 levoFLOXacin [Levaquin] 750 mg PO DAILY 7 Days #7 tab 04/22/18 Levocetirizine Dihydrochloride 5 mg PO HS 04/27/18 Omeprazole 20 mg PO DAILY 04/27/18 Silodosin [Rapaflo] 8 mg PO HS 04/27/18 Review of Systems - Review of Systems Constitutional: reports: No Symptoms Eyes: reports: No Symptoms HENT: reports: No Symptoms Neck: reports: No Symptoms Cardiovascular: reports: No Symptoms Respiratory: reports: No Symptoms Gastrointestinal: reports: No Symptoms Genitourinary: reports: Frequency, Urgency Breasts: reports: No Symptoms Reported Musculoskeletal: reports: No Symptoms Neurological: reports: No Symptoms Endocrine: reports: No Symptoms Hematology/Lymphatic: reports: No Symptoms Psychiatric: reports: No Symptoms Vital Signs: Vital Signs Temperature 98.5 F 04/28/18 08:26 Pulse Rate 102 H 04/28/18 08:26 Respiratory Rate 18 04/28/18 08:26 Blood Pressure 138/87 04/28/18 08:26 O2 Sat by Pulse Oximetry (%) 96 04/28/18 08:21 Constitutional: Yes: Well Nourished, No Distress, Calm Eyes: Yes: WNL, Conjunctiva Clear, EOM Intact HENT: Yes: WNL, Atraumatic, Normocephalic Neck: Yes: WNL, Supple, Trachea Midline Respiratory: Yes: WNL, Regular, CTA Bilaterally Gastrointestinal: Yes: WNL, Normal Bowel Sounds, Soft Renal/: Yes: Hanson Present Cardiovascular: Yes: WNL, Regular Rate and Rhythm JVD: No Carotid Bruit: No PMI: Non-Displaced Heart Sounds: Yes: S1, S2 Musculoskeletal: Yes: WNL Extremities: Yes: WNL Edema: No Peripheral Pulses WNL: Yes Integumentary: Yes: WNL Neurological: Yes: WNL ...Motor Strength: WNL - Other Data Labs, Other Data: CBC, BMP 04/28/18 05:30 04/28/18 05:30 Troponin, BNP 04/28/18 05:30 Troponin I < 0.02 Troponin, BNP 04/28/18 05:30 Troponin I < 0.02 Assessment/Plan The patient is a 73-year-old man with a history of diabetes, hypertension, hyperlipidemia, prostate cancer, nephrolithiasis, status post lithotripsy, now admitted with dizziness, lightheadedness, and near syncope. Found to be orthostatic. Prior to the event the patient had a urinary catheter removed. The patient is currently back to his baseline. Denies chest pains and shortness of breath. No palpitations. An echocardiogram that was done earlier today showed that both ventricles are functioning normally. There were no other clinically important findings on the echo. The ECG showed sinus rhythm without any ST changes. Most likely a vasovagal event and orthostasis. There is no evidence of ischemia nor acute coronary syndrome. The echocardiogram is essentially normal. No need for further cardiac workup at this point. No need for further cardiac monitoring. Please do not hesitate to call us PRN.
[2018-04-28] MEDS: MULTIVITAMINS (DAILY MVI) TABLET (FP) PO SCH (14:46)
--- NOTE | 2018-04-28 14:59 | CONSULT ---
Consult - text type - Consultation Consultation Note: Renal Consult for BRANDEN This is a 73 year old gentleman with hx of Prostate cancer (untreated), Hypertension, Hx of nephrolithiasis, Hyperlipidemia who was admitted with dizziness and pre-syncope and found to have Cr of 1.8. Pt was seen by me as an outpatient, last serum Cr was 1.07 on 02/24/2018. Pt had BRANDEN prior related to NSAID use. MRI done as an outpatient showed a left renal parapelvic cyst, likely L4 hemangioma. Pt has bladder catheter in at the present time and feels ok. Denies any sob, cp, abd pain, N/V/D, flank pain, fever, chills. No recent NSAID use. PMhx: as above Allergies: NKDA Family Hx: NC Social Hx: No T/A/D ROS: as per HPI Home Medications Medication Instructions Recorded Metoprolol Succinate 50 mg PO DAILY #5 tab.er.24h MDD 1 02/15/18 tab Ascorbate Calcium/Bioflavonoid 1 each PO DAILY 04/22/18 [Alexandria-C 1,000 mg Tablet] Aspirin [ASA -] 81 mg PO DAILY 04/22/18 Atorvastatin Ca [Lipitor] 10 mg PO HS 04/22/18 Esomeprazole Magnesium [Nexium 40 mg PO DAILY 04/22/18 24Hr] Hydrochlorothiazide 25 mg PO DAILY 04/22/18 L.acidoph,Paracasei, B.lactis 1 each PO DAILY 04/22/18 [Probiotic] Levothyroxine [Synthroid -] 150 mcg PO DAILY 04/22/18 Metformin HCl [Glucophage] 500 mg PO DAILY 04/22/18 Multivit-Min/Folic/Vit K/Lycop 1 each PO DAILY 04/22/18 [Men's Daily Formula Tablet] Ubidecarenone [Coq-10] 300 mg PO DAILY 04/22/18 levoFLOXacin [Levaquin] 750 mg PO DAILY 7 Days #7 tab 04/22/18 Levocetirizine Dihydrochloride 5 mg PO HS 04/27/18 Omeprazole 20 mg PO DAILY 04/27/18 Silodosin [Rapaflo] 8 mg PO HS 04/27/18 Vital Signs Temperature 98.5 F 04/28/18 08:26 Pulse Rate 102 H 04/28/18 08:26 Respiratory Rate 18 04/28/18 08:26 Blood Pressure 138/87 04/28/18 08:26 O2 Sat by Pulse Oximetry (%) 96 04/28/18 08:21 NAD awake and alert neck supple no JVD RRR CTA soft NT/ND no LE edema Mcleod catheter in place CBC, BMP 04/28/18 05:30 04/28/18 05:30 Current Medications Ascorbic Acid (Vitamin C -) 500 mg PO BID [facility] Aspirin (Asa -) 81 mg PO DAILY [facility] Last Admin: 04/28/18 09:52 Dose: Not Given Atorvastatin Calcium (Lipitor -) 10 mg PO HS [facility] Last Admin: 04/27/18 22:51 Dose: 10 mg Heparin Sodium (Porcine) (Heparin -) 5,000 unit SQ BID [facility] Last Admin: 04/28/18 09:51 Dose: 5,000 unit Insulin Aspart (Novolog Vial Sliding Scale -) 1 vial SQ [facility]; Protocol Last Admin: 04/28/18 11:14 Dose: 2 units Lactobacillus Acidophilus (Bacid -) 1 tab PO DAILY [facility] Levofloxacin 500 mg/ (Levofloxacin 250 mg) 750 mg PO DAILY@2100 [facility] Stop: 04/29/18 20:59 Levothyroxine Sodium (Synthroid -) 150 mcg PO DAILY@0700 [facility] Last Admin: 04/28/18 06:47 Dose: 150 mcg Lidocaine (Lidoderm Patch -) 1 patch TP DAILY [facility] Last Admin: 04/28/18 09:52 Dose: 1 patch Lidocaine HCl (Xylocaine 2% Uro-Jet) 1 ml UR Q6H PRN PRN Reason: PAIN Last Admin: 04/28/18 09:51 Dose: 1 ml Loratadine (Claritin -) 10 mg PO [facility] Last Admin: 04/27/18 22:53 Dose: Not Given Metformin HCl (Glucophage -) 500 mg PO DAILY@0700 [facility] Metoprolol Tartrate (Lopressor -) 50 mg PO DAILY [facility] Miscellaneous (Lidoderm Patch Removal) 1 each MC DAILY@2200 [facility] Multivitamins/Minerals/Vitamin C (Tab-A-Vit -) 1 tab PO DAILY [facility] Last Admin: 04/28/18 14:46 Dose: 1 tab Patient's Own Medication (Non- Formulary)Rapaflo 8 Mg 1 each PO [facility] Pantoprazole Sodium (Protonix -) 40 mg PO DAILY [facility] Last Admin: 04/28/18 09:52 Dose: 40 mg 73 year old gentleman with hx of Prostate cancer (untreated), Hypertension, Hx of nephrolithiasis, Hyperlipidemia who was admitted with dizziness and pre- syncope and found to have Cr of 1.8. Pt was seen by me as an outpatient, last serum Cr was 1.07 on 02/24/2018. #BRANDEN likely due to urinary retention +/- hemodynamic changes #Urinary retention with prostate cancer #Hypertension #DM Renal function with modest improvement in the last 24 hours maintain mcleod as per urology Check urine studies for FeNa Trial of IVF x 24 hours Hold Metformin as Cr > 1.5 no ALVA/ARB, NSAIDs as this time trend renal function and electrolytes daily continue metoprolol Urology follow up Thank you Rohith Castellanos DO
[2018-04-28] MEDS ORDERED: SODIUM CHLORIDE 1,000 ML IV SCH (15:15)
[2018-04-28] MEDS ORDERED: levoFLOXacin 500 MG, levoFLOXacin 250 MG PO SCH (21:00)
[2018-04-28] MEDS: ASCORBIC ACID 500 MG TABLET (FP) PO SCH (21:22)
[2018-04-28] MEDS: ATORVASTATIN CA 10 MG TABLET (FP) PO SCH (21:22)
[2018-04-28] MEDS: LORATADINE 10 MG TABLET PO SCH (21:23)
[2018-04-28] MEDS ORDERED: RAPAFLO 8 MG PO SCH (22:00)
[2018-04-28] MEDS ORDERED: LIDOCAINE PATCH REMOVAL MC SCH (22:00)
[2018-04-29] MEDS: LEVOTHYROXINE NA 150 MCG TABLET PO SCH (06:28)
[2018-04-29] MEDS: INSULIN SLIDING SCALE (NOVOLOG) 1 VIAL SQ SCH ×2 (06:37→11:20)
[2018-04-29] MEDS ORDERED: metFORMIN HCL 500 MG TABLET (FP) PO SCH (07:00)
[2018-04-29 07:14] LABS: ANION GAP 8 MMOL/L (8-16); BLOOD UREA NITROGEN 27 mg/dL (7-18); CALCIUM 8.9 mg/dL (8.5-10.1); CHLORIDE 104 mmol/L (98-107); CO2 27 mmol/L (21-32); CREATININE 1.5 mg/dL (0.55-1.3); GLUCOSE,RANDOM 111 mg/dL (74-106); MAGNESIUM 1.4 mg/dL (1.8-2.4); SODIUM 138 mmol/L (136-145)
[2018-04-29] MEDS ORDERED: METOPROLOL TARTRATE 50 MG TABLET (FP) PO SCH (10:00)
[2018-04-29] MEDS ORDERED: LACTOBACILLUS ACIDOPHILUS 1 TABLET PO SCH (10:00)
--- NOTE | 2018-04-29 10:16 | DS ---
Physical Examination Vital Signs: Vital Signs Temperature 98.7 F 04/29/18 05:56 Pulse Rate 89 04/29/18 05:56 Respiratory Rate 18 04/29/18 05:56 Blood Pressure 138/83 04/29/18 05:56 O2 Sat by Pulse Oximetry (%) 96 04/28/18 20:46 Cardiovascular: Yes: Regular Rate and Rhythm Respiratory: Yes: Regular, CTA Bilaterally Gastrointestinal: Yes: Normal Bowel Sounds, Soft. No: Tenderness Labs: CBC, BMP 04/28/18 05:30 04/29/18 05:30 Discharge Summary Reason For Visit: LIGHTHEADEDNESS/RETENTION OF URINE Current Active Problems Hypothyroid (Acute) Lightheadedness (Acute) Prostate cancer (Acute) Urinary retention (Acute) Hospital Course: - Problems (1) Lightheadedness Assessment/Plan: -Probably vasovagal monitor echo cardio Code(s): R42 - DIZZINESS AND GIDDINESS (2) Prostate cancer Code(s): C61 - MALIGNANT NEOPLASM OF PROSTATE (3) Urinary retention Assessment/Plan: d/w urolgy--will need turp cardio clearance stress test Code(s): R33.9 - RETENTION OF URINE, UNSPECIFIED (4) Essential hypertension Assessment/Plan: Vital Signs Period Temp Pulse Resp BP Sys/Monreal Pulse Ox Last 24 Hr 98.0 F-98.6 F 57-105 14-20 104-152/52-91 96-97 Code(s): I10 - ESSENTIAL (PRIMARY) HYPERTENSION WILL DC HOME WITH OUTPATIENT FOLLOW UP Condition: Stable - Instructions Diet, Activity, Other Instructions: Please return to the emergency department with any new or worsening symptoms or concerns. Please follow up with your primary care physician within 72 hours. Please follow up with urology within 48 hours. Please avoid driving, and operating heavy machinery for 6 months. Referrals: Cristiano Manuel MD [Staff Physician] - Disposition: HOME - Home Medications Comprehensive Discharge Medication List: Ambulatory Orders Metoprolol Succinate 50 mg PO DAILY #5 tab.er.24h MDD 1 tab 02/15/18 Atorvastatin Ca [Lipitor] 10 mg PO HS 04/22/18 Esomeprazole Magnesium [Nexium 24Hr] 40 mg PO DAILY 04/22/18 L.acidoph,Paracasei, B.lactis [Probiotic] 1 each PO DAILY 04/22/18 Levothyroxine [Synthroid -] 150 mcg PO DAILY 04/22/18 Multivit-Min/Folic/Vit K/Lycop [Men's Daily Formula Tablet] 1 each PO DAILY 05/09 Ubidecarenone [Coq-10] 300 mg PO DAILY 04/22/18 Levocetirizine Dihydrochloride 5 mg PO HS 04/27/18 Silodosin [Rapaflo] 8 mg PO HS 04/27/18 Lactobacillus Acidophilus [Bacid -] 1 tab PO DAILY tab 04/29/18 Metoprolol Tartrate [Lopressor -] 50 mg PO DAILY tablet 04/29/18
[2018-04-29] MEDS: ASCORBIC ACID 500 MG TABLET (FP) PO SCH (10:25)
[2018-04-29] MEDS: MULTIVITAMINS (DAILY MVI) TABLET (FP) PO SCH (10:25)
[2018-04-29] MEDS: LIDOCAINE 5% TOPICAL PATCH TP SCH (10:25)
[2018-04-29] MEDS: HEPARIN NA (PORCINE) 5,000 UNITS/ML 1ML VIAL SQ SCH (10:25)
[2018-04-29] MEDS: PANTOPRAZOLE 40 MG TABLET (FP) PO SCH (10:25)
[2018-04-29] MEDS ORDERED: PT OWN MED DRAWER 7, Y5N ONE (12:54)
[2018-04-29 13:06] VITALS: BP 140/78; PULSE 90; TEMP 98.2
--- NOTE | 2018-04-29 14:10 | PN ---
Progress Note, Physician Chief Complaint: no complaints tele neg History of Present Illness: The patient is a 73-year-old man with a history of diabetes, hypertension, hyperlipidemia, prostate cancer, nephrolithiasis, status post lithotripsy, now admitted with dizziness, lightheadedness, and near syncope. Found to be orthostatic. Prior to the event the patient had a urinary catheter removed. The patient is currently back to his baseline. Denies chest pains and shortness of breath. No palpitations. An echocardiogram that was done earlier today showed that both ventricles are functioning normally. There were no other clinically important findings on the echo. The ECG showed sinus rhythm without any ST changes. He is awaiting Prostate surgery. He did not get his stress test. At baseline his exercise tolerance is without limits. - Current Medication List Current Medications: Active Medications Ascorbic Acid (Vitamin C -) 500 mg PO BID [facility] Last Admin: 04/29/18 10:25 Dose: 500 mg Aspirin (Asa -) 81 mg PO DAILY [facility] Last Admin: 04/28/18 09:52 Dose: Not Given Atorvastatin Calcium (Lipitor -) 10 mg PO HS [facility] Last Admin: 04/28/18 21:22 Dose: 10 mg Heparin Sodium (Porcine) (Heparin -) 5,000 unit SQ BID [facility] Last Admin: 04/29/18 10:25 Dose: Not Given Sodium Chloride (Normal Saline -) 1,000 mls @ 83 mls/hr IV ASDIR [facility] Last Admin: 04/28/18 17:28 Dose: 83 mls/hr Insulin Aspart (Novolog Vial Sliding Scale -) 1 vial SQ [facility]; Protocol Last Admin: 04/29/18 11:20 Dose: Not Given Lactobacillus Acidophilus (Bacid -) 1 tab PO DAILY [facility] Last Admin: 04/29/18 10:25 Dose: 1 tab Levofloxacin 500 mg/ (Levofloxacin 250 mg) 750 mg PO DAILY@2100 [facility] Stop: 04/29/18 20:59 Last Admin: 04/28/18 21:22 Dose: 750 mg Levothyroxine Sodium (Synthroid -) 150 mcg PO DAILY@0700 [facility] Last Admin: 04/29/18 06:28 Dose: 150 mcg Lidocaine (Lidoderm Patch -) 1 patch TP DAILY [facility] Last Admin: 04/29/18 10:25 Dose: 1 patch Lidocaine HCl (Xylocaine 2% Uro-Jet) 1 ml UR Q6H PRN PRN Reason: PAIN Last Admin: 04/28/18 09:51 Dose: 1 ml Loratadine (Claritin -) 10 mg PO HS [facility] Last Admin: 04/28/18 21:23 Dose: Not Given Metformin HCl (Glucophage -) 500 mg PO DAILY@0700 [facility] Metoprolol Tartrate (Lopressor -) 50 mg PO DAILY [facility] Last Admin: 04/29/18 10:25 Dose: 50 mg Miscellaneous (Lidoderm Patch Removal) 1 each MC DAILY@2200 [facility] Last Admin: 04/28/18 22:02 Dose: Not Given Multivitamins/Minerals/Vitamin C (Tab-A-Vit -) 1 tab PO DAILY [facility] Last Admin: 04/29/18 10:25 Dose: 1 tab Patient's Own Medication (Non- Formulary)Rapaflo 8 Mg 1 each PO HS [facility] Last Admin: 04/28/18 21:21 Dose: 1 each Pantoprazole Sodium (Protonix -) 40 mg PO DAILY [facility] Last Admin: 04/29/18 10:25 Dose: 40 mg - Objective Vital Signs: Vital Signs Temperature 98.2 F 04/29/18 10:00 Pulse Rate 90 04/29/18 10:00 Respiratory Rate 18 04/29/18 10:00 Blood Pressure 140/78 04/29/18 10:00 O2 Sat by Pulse Oximetry (%) 96 04/29/18 09:00 Constitutional: Yes: No Distress, Calm Eyes: Yes: Conjunctiva Clear, EOM Intact HENT: Yes: Atraumatic, Normocephalic Neck: Yes: Supple, Trachea Midline Cardiovascular: Yes: Regular Rate and Rhythm Respiratory: Yes: CTA Bilaterally Gastrointestinal: Yes: Normal Bowel Sounds, Soft Extremities: Yes: WNL Edema: No Peripheral Pulses WNL: Yes Labs: CBC, BMP 04/28/18 05:30 04/29/18 05:30 Assessment/Plan The patient is a 73-year-old man with a history of diabetes, hypertension, hyperlipidemia, prostate cancer, nephrolithiasis, status post lithotripsy, now admitted with dizziness, lightheadedness, and near syncope. Found to be orthostatic. Prior to the event the patient had a urinary catheter removed. The patient is currently back to his baseline. Denies chest pains and shortness of breath. No palpitations. An echocardiogram 04/28/18 showed that both ventricles are functioning normally. There were no other clinically important findings on the echo. The ECG showed sinus rhythm without any ST changes. Most likely a vasovagal event and orthostasis. There is no evidence of ischemia nor acute coronary syndrome. The echocardiogram is essentially normal. No need for further cardiac workup at this point. he does not need stress testing before prostate surgery. He is at low to intermediate risk, is medically optimized and has no cardiac contraindications to surgery. No need for further cardiac monitoring. Will see as needed.
== END 2018-04-29 14:57 | disposition home or self-care (01) | DRG 149 ==
LOC: JER 12:28 → JERBED 15:29 → J4W 18:33 → OBSVTOIN 04-28 11:44
PROVIDERS: ADMIT Student in an Organized Health Care Education/Training Program; ATTEND Student in an Organized Health Care Education/Training Program
DX: R42 Dizziness and giddiness (principal); N17.9 Acute kidney failure, unspecified; R33.9 Retention of urine, unspecified; C61 Malignant neoplasm of prostate; I10 Essential (primary) hypertension; E11.9 Type 2 diabetes mellitus without complications; N13.9 Obstructive and reflux uropathy, unspecified; E78.5 Hyperlipidemia, unspecified; E03.9 Hypothyroidism, unspecified; R55 Syncope and collapse
CPT/HCPCS: 36415; 70450-TC; 76775-TC; 76856-TC; 80048; 80053; 80061; 81003; 81015; 82550; 82570; 82962; 83036; 83721; 83735; 84100; 84300; 84443; 84484; 85025; 85027; 87086; 93005; 93010; 93306-TC; 99284-25; G0378; J1644; J7030

== ENCOUNTER 2018-05-09 06:06 | Day surgery (SDC) | payer OTHER ==
[2018-05-05 16:37] VITALS: BMI 32.1
[2018-05-09] MEDS ORDERED: PROPOFOL 20 ML ONE (07:15)
[2018-05-09] MEDS ORDERED: MIDAZOLAM HCL 2 MG/2 ML SINGLE DOSE VIAL ONE ×2 (07:15→07:40)
[2018-05-09] MEDS ORDERED: BUPIVACAINE HCL/PF 0.5% (5MG/ML) 10 ML VIAL ONE (07:27)
[2018-05-09] MEDS ORDERED: ePHEDrine SULFATE 50 MG/1 ML AMPULE ONE (08:50)
--- NOTE | 2018-05-09 09:05 | OP ---
Operative Note - Note: Operative Date: 05/09/18 Pre-Operative Diagnosis: bph/prostate cancer/urinary retention Operation: transurethral resection and vaporization of the prostate Findings: large obstructive prostate with 2+ bladder trabeculaton Post-Operative Diagnosis: Same as Pre-op Surgeon: Cristiano Manuel Anesthesia: Spinal Specimens Removed: prostatic chips Estimated Blood Loss (mls): 50 Drains & Tubes with Location: mcleod catheter to light traction
--- NOTE | 2018-05-09 09:29 | OP ---
DATE OF OPERATION: 05/09/2018 PREOPERATIVE DIAGNOSES: Benign prostatic hypertrophy, prostate cancer, and urinary retention. POSTOPERATIVE DIAGNOSES: Benign prostatic hypertrophy, prostate cancer, and urinary retention. PROCEDURE: Transurethral resection and vaporization of the prostate utilizing Bipolar system. ATTENDING SURGEON: Vibha Manuel MD ANESTHESIA: Spinal. REASON OF OPERATION: The patient has a history of benign prostatic hypertension and prostate cancer. The patient went into acute urinary retention and failed multiple trials of voiding. The patient had been under maximum medical therapy for benign prostatic hypertrophy. The patient understands all risks and benefits of the operation. DESCRIPTION OF OPERATION: The patient was brought in the operating room, placed in supine position on the operating room table. Anesthesia and preoperative antibiotics were administered without complications. Patient was then placed in the dorsal lithotomy position and prepped and draped in the usual sterile manner. A resectoscope was placed under visualization into the bladder. The bladder was investigated and noted to have no evidence of stones or neoplasm. A 3+ obstructive prostate was noted. Resection of the prostate in order to debulk the prostate was performed initially. The margins of the resection were the bladder neck proximally and the verumontanum distally. The resection was performed in a 360-degree fashion. The resection was taken down to the level of the pseudocapsule of the prostate. Once this was performed, all prostatic chips were evacuated from the bladder utilizing the Fleck evacuator. At this point, the working element, which had been the loop, was changed to a button. Vaporization and cauterization was then ensured utilizing the button element of the bipolar system. Residual tissue was vaporized, and excellent hemostasis was attained within the prostatic fossa. The margins of the vaporization and cauterization were the bladder neck proximally and the verumontanum distally. This was done again in a 360-degree fashion. Excellent hemostasis was attained. The bladder was investigated and noted to have no evidence of residual prostatic tissue. There was no evidence of perforation of the bladder. The abdomen was soft on examination during the procedure. With excellent hemostasis, the resectoscope was removed, and a Hanson catheter placed, 30 mL were inflated into the balloon of the catheter and placed on light traction. Excellent drainage was noted which was light pink in color. The disposition of the patient was to the recovery room. The catheter had been placed to straight drainage. The patient will be observed in the recovery room and the postop area. If the patient continues to do well, he will be discharged home. VIBHA JIMENEZ M.D. /[id number]
[2018-05-09] MEDS ORDERED: ONDANSETRON 4 MG/2 ML VIAL IVPUSH PRN (09:30)
[2018-05-09] MEDS ORDERED: oxyCODONE HCL 5 MG TABLET PO PRN ×2 (09:30)
[2018-05-09] MEDS ORDERED: LACTATED RINGERS SOLUTION 1,000 ML IV SCH (09:30)
[2018-05-09 10:22] VITALS: PULSE 54
[2018-05-09 14:50] VITALS: BP 120/76; TEMP 97.4
--- NOTE | 2018-05-12 18:16 | PATH ---
Surgical Pathology Report Patient Name: MARKEL MODI [facility]. Rec. #: [id number] /Age/Gender: 1945 (Age: 73) / M Account: [id number] Location: [facility] SURGICAL Taken: 05/09/2018 Received: 05/09/2018 Reported: 05/12/2018 Physicians: Cristiano Manuel Specimen(s) Received PROSTATE TISSUE Clinical History BPH with lower urinary tract symptoms, history of prostate cancer Final Diagnosis PROSTATE, TRANSURETHRAL RESECTION OF PROSTATE: BENIGN PROSTATIC TISSUE WITH ACUTE AND CHRONIC INFLAMMATION, ACINAR ATROPHY, CYSTIC CHANGES, GLANDULAR AND STROMAL HYPERPLASIA. PROSTATIC URETHRA WITH ACUTE AND CHRONIC CYSTITIS. Comment: Immunohistochemical stains performed and interpreted at [facility] show [id number] shows partial loss of basal cells in focal areas of atrophy. Electronically Signed Rosie Damon M.D. Gross Description Received in formalin labeled "prostate tissue," is a 22 g, 10.5 x 9.5 x 0.8 cm aggregate of abundant dominguez, irregular, firm to rubbery portions of tissue, consistent with prostate chips. The prostate chips are admixed with abundant red blood clot. Construction Administrator sections are submitted in 11 cassettes. /05/09/2018 [place]udi05/09/2018
== END 2018-05-09 15:07 | disposition home or self-care (01) ==
LOC: JASU-SURG 06:06
PROVIDERS: ATTEND Urology
PROC: 0VT08ZZ Resection of Prostate, Via Natural or Artificial Opening Endoscopic (ICD-10-PCS; principal; 2018-05-09 07:30)
DX: N40.1 Benign prostatic hyperplasia with lower urinary tract symptoms (principal); R33.8 Other retention of urine; C61 Malignant neoplasm of prostate
CPT/HCPCS: 88305-TC; 88342-TC; 94760

== ENCOUNTER 2020-01-02 04:41 | Inpatient (IN) | payer OTHER ==
[2020-01-01 09:11] VITALS: BMI 31.7
--- OUTSIDE RECORDS SUMMARY | 2020-01-02 04:44 | XMS ---
:1945 Author Organization [facility] Care Team Providers Name Role Phone VIBHA MCKEON Unavailable Unavailable Re-disclosure Warning The records that you are about to access may contain information from federally- assisted alcohol or drug abuse programs. If such information is present, then the following federally mandated warning applies: This information has been disclosed to you from records protected by federal confidentiality rules (42 CFR part 2). The federal rules prohibit you from making any further disclosure of this information unless further disclosure is expressly permitted by the written consent of the person to whom it pertains or as otherwise permitted by 42 CFR part 2. A general authorization for the release of medical or other information is NOT sufficient for this purpose. The Federal rules restrict any use of the information to criminally investigate or prosecute any alcohol or drug abuse patient.The records that you are about to access may contain highly sensitive health information, the redisclosure of which is protected by Article 27-F of the [place] State Public Health law. If you continue you may haveaccess to information: Regarding HIV / AIDS; Provided by facilities licensed or operated by the [facility] Office of Mental Health; or Provided by the [facility] Office for People With Developmental Disabilities. If such information is present, then the following [facility] mandated warning applies: This information has been disclosed to you from confidential records which are protected by state law. State law prohibits you from making any further disclosure of this information without the specific written consent of the person to whom it pertains, or as otherwise permitted by law. Any unauthorized further disclosure in violation of state law may result in a fine or care home sentence or both. A general authorization for the release of medical or other information is NOT sufficient authorization for further disclosure. Encounters Encounter Providers Location Date Indications Data Source(s ) Outpatient Admitter: VIBHA Grover 03/26/2019 [place] 11:17:00 AM [facility] EST Outpatient Attender: VIBHA H 03/26/2019 [place] 08:06:[facility] EST - VIBHA PARADA 03/26/2019 SHERIFReferrer: 03:00:00 PM VIBHA DUNNE Insurance Providers Payer name Policy type Policy ID Covered Covered republican's Policy P nara / Coverage republican ID relationship to [employer] orm[employer] type owens PGBA, [id number] SP [id number] [employer]/ MEDICARE [id number] SP [id number] [id number] PGBA, [id number] SP [id number] 700 LLC/ O [id number] M [id number] 01 [id number] [id number] O [id number] 01 [id number] FOR [id number] SP [id number] IREE PGBA, [id number] SP [id number] LLC/ MEDICARE [id number] SP [id number] F85 PGBA, [id number] SP [id number] LLC/ MEDICARE [id number] SP [id number] [id number] PGBA, [id number] SP [id number] LLC/ MEDICARE [id number] SP [id number] A PGBA, [id number] SP [id number] 700 LLC/ Problems, Conditions, and Diagnoses Code Display Name Description Problem Type Effective Dates Data Source(s) N21.0 Calculus in CALCULUS IN Diagnosis 03/26/2019 [place] s bladder BLADDER 08:06:00 AM EST Medical C enter N40.1 Benign prostatic BENIGN PROSTATIC Diagnosis 03/26/2019 Sa int Charissa hyperplasia with HYPERPLASIA WITH 08:06:00 AM E [facility] lower urinary LOWER URINARY tract symptoms TRACT SYMP Results ID Date Data Source [id number] 12/28/2019 10:15:00 AM EDT [facility] Name Value Range Interpretation Description Data Sup porting Code Source(s) Document(s ) SARS [facility] coronavirus 2 RNA This lab was ordered by [facility] and reported by [facility]. Procedure
[2020-01-02] MEDS ORDERED: SUCCINYLCHOLINE CHLORIDE 200 MG/10 ML SYRINGE ONE (07:57)
[2020-01-02] MEDS ORDERED: ROCURONIUM BROMIDE 100 MG/10 ML VIAL ONE (07:57)
[2020-01-02] MEDS ORDERED: PROPOFOL 20 ML ONE ×3 (07:57)
[2020-01-02] MEDS ORDERED: MIDAZOLAM HCL 2 MG/2 ML SINGLE DOSE VIAL ONE ×2 (07:58→08:48)
[2020-01-02] MEDS ORDERED: ROPIVACAINE HCL 0.5% 30ML VIAL ONE (08:35)
[2020-01-02] MEDS ORDERED: BUPIVACAINE LIPOSOME/PF (EXPAREL) 266 MG/20 ML VIAL NR ONE (09:00)
--- NOTE | 2020-01-02 09:26 | HP ---
Satellite [facility] - Chief Complaint Chief Complaint: right shoulder pain - Past Medical History Allergies/Adverse Reactions: Allergies Allergy/AdvReac Type Severity Reaction Status Date / Time Penicillins Allergy Severe Hives Verified 01/01/20 09:11 Cardiovascular: Yes: HTN Renal/: Yes: Renal Inusuff Heme/Onc: Yes: Other (prostate cancer) - Current Medications Current Medications: Home Medications Medication Instructions Recorded Atorvastatin Ca [Lipitor] 10 mg PO DAILY 04/22/18 L.acidoph,Paracasei, B.lactis 1 each PO DAILY 04/22/18 [Probiotic] Levothyroxine [Synthroid -] 150 mcg PO DAILY 04/22/18 Multivit-Min/Folic/Vit K/Lycop 1 each PO DAILY 04/22/18 [Men's Daily Formula Tablet] Silodosin [Rapaflo] 8 mg PO HS 04/27/18 Metoprolol Tartrate [Lopressor -] 50 mg PO DAILY tablet 04/29/18 Aspirin Coated [Ecotrin -] 81 mg PO DAILY 05/05/18 Omeprazole Magnesium 40 mg PO DAILY 05/05/18 Ascorbic Acid [Vitamin C] 500 mg PO DAILY 01/01/20 Ascorbic Acid/Elderberry Fruit 1 each PO DAILY 01/01/20 [Elderberry-Vit C 50-100 mg Chw] Azilsartan Medoxomil [Edarbi] 80 mg PO DAILY 01/01/20 Bicalutamide [Casodex -] 50 mg PO DAILY 01/01/20 Cranberry Fruit Extract [Cranberry] 250 mg PO DAILY 01/01/20 Cyclobenzaprine HCl [Flexeril -] 10 mg PO DAILY 01/01/20 Loratadine 10 mg PO DAILY 01/01/20 Magnesium 200 mg PO DAILY 01/01/20 Pramipexole Di-HCl [Pramipexole 1.5 mg PO BID 01/01/20 Dihydrochloride] Sitagliptin Phosphate [Januvia] 50 mg PO DAILY 01/01/20 traZODone HCL [Trazodone HCl] 50 mg PO HS 01/01/20 Benzonatate 100 mg PO PRN PRN 01/02/20 Satellite Physical Exam - Physical Examination Vital Signs: Vital Signs Period Temp Pulse Resp BP Sys/Monreal Pulse Ox Last 24 Hr 97.1 F 59 20 101/53 97-97 General Appearance: Well Nourished, Well Developed, Alert & Oriented x3 ENT: Clear Lung: Normal air movement Extremities: Other (right shoulder- + ttp, dec rom, + empty can, nvi) Neurological: Intact, Alert, Oriented Satellite Impression/Plan - Impression/Plan Impression: right shoulder chronic RC arthropathy, GH jt DJD Operative Procedure: right reverse TSA Date to be Performed: 01/02/20
[2020-01-02] MEDS ORDERED: EPHEDRINE SULFATE/0.9% NACL/PF 50 MG/10 ML SYRINGE NR ONE ×2 (09:46→10:06)
[2020-01-02] MEDS ORDERED: ceFAZolin SODIUM 1 GM VIAL IVPB ONE (10:01)
--- NOTE | 2020-01-02 11:53 | OP ---
Operative Note - Note: Operative Date: 01/02/20 Pre-Operative Diagnosis: right shoulder OA, RTC dysfunction Operation: right shoulder reverse total shoulder replacement, Capsular imbrication Implants: [place] Reverse Total shoulder replacement prosthesis, 32mm Glenosphere, #20 Humeral stem, 32mm x 10mm Humeral cup Post-Operative Diagnosis: Same as Pre-op Surgeon: Milan Velez Healthcare Economics Manager: Faheem Parkinson Anesthesiologist/SENIOR PL SQL DEVELOPER: Joce Arnett Anesthesia: General, Local Specimens Removed: right humeral head Estimated Blood Loss (mls): 100 Drains, Volume Out (mls): 0 Blood Volume Replaced (mls): 0 Fluid Volume Replaced (mls): 1,000 Operative Report Dictated: Yes
[2020-01-02] MEDS ORDERED: MORPHINE SULFATE 2 MG/ML VIAL IVPUSH PRN (12:01)
[2020-01-02] MEDS ORDERED: oxyCODONE HCL 5 MG TABLET PO PRN ×3 (12:01→12:10)
[2020-01-02] MEDS ORDERED: ONDANSETRON 4 MG/2 ML VIAL IVPUSH PRN (12:10)
[2020-01-02] MEDS ORDERED: traMADol HCL 50 MG TABLET PO PRN (12:10)
[2020-01-02] MEDS ORDERED: LACTATED RINGERS SOLUTION 1,000 ML IV SCH (12:15)
--- NOTE | 2020-01-02 12:36 | SPEC ---
DATE OF OPERATION: 01/02/2020 PREOPERATIVE DIAGNOSES: Right shoulder osteoarthritis and partial rotator cuff tear, significant rotator cuff dysfunction. POSTOPERATIVE DIAGNOSES: Right shoulder osteoarthritis and partial rotator cuff tear, significant rotator cuff dysfunction. PROCEDURE: Right shoulder reverse total shoulder replacement. SURGEON: Franchesca Gonzales MD ASSISTANTS: SRIKANTH Umaña OCCUPATIONAL THERAPIST'S ASSISTANT/ANESTHESIOLOGIST: Celia Aguilar REF-CRN, and Joce Arnett MD ANESTHESIA: Right interscalene block with LMA anesthesia. DRAINS: None. COMPLICATIONS: None. SPECIMEN: Right humeral head. BLOOD LOSS: 100 mL. BLOOD GIVEN: None. FLUID REPLACEMENT: Plasmalyte, 1000 mL. INDICATIONS: This patient is a 74-year-old male with preoperative diagnoses of significant right shoulder glenohumeral osteoarthritis and significant right shoulder rotator cuff dysfunction. After understanding the potential risks, complications, alternatives and benefits of surgery versus nonsurgical treatment, the patient elected to undergo this procedure. OPERATIVE TIME: 1-1/2 hours. TOURNIQUET: None. ANTIBIOTICS: Ancef 2 g IV. DESCRIPTION OF PROCEDURE: A right interscalene block was performed. LMA anesthesia was induced. He was placed into the beach-chair position with ample padding throughout. The right upper extremity was prepped and draped in a sterile fashion. A deltopectoral approach incision was marked out using the coracoid and mid aspect of the proximal humerus as landmarks. The incision was made with the No. 15 scalpel blade. Subcutaneous hemostasis was achieved with a Bovie cautery. Dissection was done through the superficial fascia. Blunt dissection was done with my finger in the deltopectoral interval. The cephalic vein was retracted medially. The Gelpi self-retaining retractors were placed into the wound. I found the conjoined tendon off the coracoid and used the Bovie to incise lateral to it. I was then able to cut down to bone and preserve the medial and lateral capsular flaps. The rotator cuff subscapularis was very deficient. I then peeled the soft tissues, including the anterior aspect of the deltoid insertion off the humerus. The biceps tendon was seen to be frayed, degenerated out of its groove, and therefore I did a biceps tenolysis. Appropriate Fukuda and pickle-fork retractors were placed into the wound, exposing the proximal humerus. I was able to easily dislocate it anteriorly. It was extremely arthritic. Next, using the external guide and a broach, I used the oscillating saw to do a cut at the articular margin. Osteophytes were removed with the rongeur. Some soft tissue was removed with the Bovie. I was able to expose the proximal humerus quite well. Next, using the standard technique, using the [place] Reverse Total Shoulder Replacement System, we used first the starting awl and then the sequential hand broaches until we had cortical chatter. Then we used the humeral stem-shape broaches and mallet. We eventually seated a 15-size stem that had excellent cortical contact and was very stable throughout. We did not need to use the calcar reamer as the humeral cut was at the right angle. Next, our attention was turned to the glenoid. The Bovie was used to remove soft tissue, including some capsular attachments and the labrum. Retractors were placed into the wound to retract the humerus and expose the glenoid. With excellent direct visualization, we then put on the glenoid glenosphere, lining it up appropriately and put in the 3.2-mm guidewire. We went through 2 cortices. We then used the guidewire to do the glenoid reamer. We were able to ream the glenoid until we got bleeding subchondral bone. More bone was taken inferiorly than superiorly, but it was concentric. The guidewire was then removed, and we put on the actual 28-mm glenoid baseplate, held it in place with a 28-mm central screw. Then using the typical standard technique, we put in superior, inferior, and posterior screws, which were 28, 28, and 16 mm in length, respectively. We had excellent compression of the glenoid baseplate against the glenoid and overall concentric fit. Next, we put on a 36-mm glenosphere. This was the actual implant, impacted in place, and it was quite stable. Next, our attention was turned to the humerus. We cleaned up the humeral shaft, put in an actual size 15 humeral press-fit porous-coated stem and used the mallet to put it down to the appropriate level. We then trialed the size of the humeral glenosphere, and it ended up being a 36-mm implant. It was extremely stable. In fact, it was very difficult to dislocate. Next, this trial was removed, and the actual 36-mm humeral glenosphere was placed on, it was reduced, and was extremely stable throughout. The area was copiously irrigated and washed out. The capsule was closed anteriorly with several No. 1 Ti-Cron sutures, the deep fascial layer closed with No. 1 Ti-Cron, and the superficial deltoid fascia closed with 0 Vicryl suture. A 2-0 Vicryl was used to close the deep dermal layer, and final skin reapproximation was done with a running subcuticular 3-0 V-Loc suture. The area was then washed and dried, covered with a 10-inch Aquacel dressing. The patient was extubated. There was total blood loss of 75 mL. There were no complications during the case. The shoulder immobilizer was placed in the operating room, and he was brought to the regular recovery room in stable condition. FRANCHESCA GONZALES M.D. [id number]
[2020-01-02] MEDS ORDERED: ACETAMINOPHEN INJECTION 100 ML IVPB ONE (13:02)
--- OUTSIDE RECORDS SUMMARY | 2020-01-02 17:14 | XMS ---
:1945 [facility] Care Team Providers Name Role Phone [...] is protected by Article 27-F of the [place] State Public Health law. If you continue you may haveaccess to information: Regarding HIV / AIDS; Provided by facilities licensed or operated by the [facility] Office of Mental Health; or Provided by the [facility] Office for People With Developmental Disabilities. If such information is present, then the following [facility] mandated warning applies: This information has been [...] law may result in a fine or senior living sentence or both. A general authorization for the release of medical or other information is NOT sufficient authorization for further disclosure. Encounters Encounter Providers Location Date Indications Data Source(s ) Outpatient Admitter: VIBHA Grover 03/26/2019 [place] 11:17:00 AM [facility] EST Outpatient Attender: VIBHA H 03/26/2019 [place] 08:06:00 [facility] EST - VIBHA PARADA 03/26/2019 SHERIFReferrer: 03:00:00 PM VIBHA DUNNE Insurance Providers Payer name Policy type Policy ID Covered Covered green party's Policy P nara / Coverage green party ID relationship to [employer] ormation type owens PGBA, [id number] SP [id number] 700 LLC/ MEDICARE [id number] S [id number] PGBA, [id number] SP [id number] LLC/ O [id number] M [id number] 01 [id number] F85 O [id number] 01 [id number] FOR [id number] SP [id number] IREE PGBA, [id number] SP [id number] LLC/ MEDICARE [id number] SP [id number] F85 PGBA, [id number] SP [id number] LLC/ MEDICARE [id number] SP [id number] F85 PGBA, [id number] SP [id number] LLC/ MEDICARE [id number] SP [id number] A PGBA, [id number] SP [id number] 700 LLC/ Problems, Conditions, and Diagnoses Code Display Name Description Problem Type Effective Dates Data Source(s) N21.0 Calculus in CALCULUS IN Diagnosis 03/26/2019 [place] s bladder BLADDER 08:06:00 AM EST Medical C enter N40.1 Benign prostatic BENIGN PROSTATIC Diagnosis 03/26/2019 [place] int Charissa hyperplasia with HYPERPLASIA WITH 08:06:[address] [facility] lower urinary LOWER URINARY tract symptoms TRACT SYMP Results ID Date Data Source [id number] 12/28/2019 10:15:00 AM EDT [facility] Name Value Range Interpretation Description Data Sup porting Code Source(s) Document(s ) SARS [facility] coronavirus 2 RNA This lab was ordered by [facility] and reported by [facility]. Procedure
[2020-01-02] MEDS ORDERED: ceFAZolin SODIUM 1 GM VIAL ONE (17:23)
[2020-01-02] MEDS: ceFAZolin 2 GRAM PREMIX BAG IVPB SCH (17:30)
[2020-01-02] MEDS ORDERED: traZODone HCL 50 MG TABLET (FP) PO SCH (22:00)
[2020-01-02] MEDS ORDERED: BICALUTAMIDE 50 MG TABLET (FP) PO SCH (23:45)
[2020-01-03] MEDS ORDERED: TAMSULOSIN HCL 0.4 MG CAP PO SCH ×2 (00:15→22:00)
[2020-01-03] MEDS: PRAMIPEXOLE DIHYDROCHLORIDE 1.5 MG TABLET PO SCH ×2 (00:16→09:52)
[2020-01-03] MEDS: ACETAMINOPHEN 325 MG TABLET (FP) PO SCH ×2 (01:12→06:03)
[2020-01-03] MEDS: ceFAZolin 2 GRAM PREMIX BAG IVPB SCH (01:13)
[2020-01-03] MEDS ORDERED: sitaGLIPtin PHOSPHATE 50 MG TABLET PO SCH (07:00)
[2020-01-03] MEDS ORDERED: LEVOTHYROXINE NA 150 MCG TABLET PO SCH (07:00)
--- NOTE | 2020-01-03 08:30 | PN ---
Progress Note (short form) - Note Progress Note: Anesthesia postop note 74 y/o s/p GA/ nerve block for reverse shoulder replacement POD#1, vss, aaox3 pain well controlled No anesthesia complications.
--- NOTE | 2020-01-03 09:27 | PN ---
Progress Note (short form) - Note Progress Note: Ortho Pt seen and examined s/p right reverse TSA pod #1 Selected Entries 01/03/20 06:00 Temperature 99.3 F Pulse Rate 76 Respiratory 20 Rate Blood Pressure 130/80 dressing c/d/i, good rom of elbow, wrist and hand, nvi a/p PT wbat RUE ROM as tolerated sling for comfort d/c home today f/u in 1 week
--- NOTE | 2020-01-03 09:28 | DS ---
Physical Examination Vital Signs: Vital Signs Temperature 99.3 F 01/03/20 06:00 Pulse Rate 76 01/03/20 06:00 Respiratory Rate 20 01/03/20 06:00 Blood Pressure 130/80 01/03/20 06:00 O2 Sat by Pulse Oximetry (%) 97 01/03/20 06:00 Discharge Summary Problems reviewed: Yes Reason For Visit: TEAR RIGHT SHOULDER Procedures: Principal: right reverse TSA Hospital Course: admitted for elective right reverse TSA, post-op per protocol ,stable for d/c Condition: Good - Instructions Diet, Activity, Other Instructions: Post -op Instruction Sheet - Shoulder Surgery - Sling/Immobilizer : You have been placed in a sling or shoulder immobilizer. As long as you are wearing this, your shoulder is well protected. You may come out of the sling to dress, or do exercises as directed. You may bend and straighten the elbow, and move your wrist and fingers, but DO NOT use your own muscles to move your elbow away from your side until directed to do so. Please sleep with the sling on. You may find it more comfortable to sleep with a small pillow behind your elbow, or in a recliner. To wash your armpit, you may lean slightly forward and let your arm dangle slightly away from your side and wash with a washcloth. - Use an ice bag/pack on the shoulder for 15 minutes every 2 hours. - Pain medication was sent to your Pharmacy. - Keep your dressing clean and dry. Please call the office to make an appointment for 1 week after surgery. Your dressing will be removed at that time. - No Lifting. - Starting 1-2 days after surgery, you may take your arm out of the sling 3 times a day to bend and straighten your elbow and wrist to prevent stiffness. If only an arthroscopy was per formed and NO repairs, you may move your shoulder as tolerated. If a rotator cuff/labral repair was performed, DO NOT move your shoulder until instructed by surgeon. - Please call the office at [phone] if there are any questions or concerns. Referrals: Milan Velez MD [Staff Physician] - - Home Medications Comprehensive Discharge Medication List: Ambulatory Orders Atorvastatin Ca [Lipitor] 10 mg PO DAILY 04/22/18 L.acidoph,Paracasei, B.lactis [Probiotic] 1 each PO DAILY 04/22/18 Levothyroxine [Synthroid -] 150 mcg PO DAILY 04/22/18 Multivit-Min/Folic/Vit K/Lycop [Men's Daily Formula Tablet] 1 each PO DAILY 04/22/18 Silodosin [Rapaflo] 8 mg PO HS 04/27/18 Metoprolol Tartrate [Lopressor -] 50 mg PO DAILY tablet 04/29/18 Aspirin Coated [Ecotrin -] 81 mg PO DAILY 05/05/18 Omeprazole Magnesium 40 mg PO DAILY 05/05/18 Ascorbic Acid [Vitamin C] 500 mg PO DAILY 01/01/20 Ascorbic Acid/Elderberry Fruit [Elderberry-Vit C 50-100 mg Chw] 1 each PO DAILY 01/01/20 Azilsartan Medoxomil [Edarbi] 80 mg PO DAILY 01/01/20 Bicalutamide [Casodex -] 50 mg PO DAILY 01/01/20 Cranberry Fruit Extract [Cranberry] 250 mg PO DAILY 01/01/20 Cyclobenzaprine HCl [Flexeril -] 10 mg PO DAILY 01/01/20 Loratadine 10 mg PO DAILY 01/01/20 Magnesium 200 mg PO DAILY 01/01/20 Pramipexole Di-HCl [Pramipexole Dihydrochloride] 1.5 mg PO BID 01/01/20 Sitagliptin Phosphate [Januvia] 50 mg PO DAILY 01/01/20 traZODone HCL [Trazodone HCl] 50 mg PO HS 01/01/20 Benzonatate 100 mg PO PRN PRN 01/02/20 Oxycodone HCl/Acetaminophen [Percocet 5-325 mg Tablet] 1 - 2 tab PO Q6H #30 tab MDD 6 01/02/20
[2020-01-03] MEDS ORDERED: PT OWN MED DRAWER 7, Y5N ONE (09:50)
[2020-01-03] MEDS ORDERED: BICALUTAMIDE 50 MG TABLET (FP) PO SCH (10:00)
[2020-01-03] MEDS ORDERED: CYCLOBENZAPRINE HCL 10 MG TABLET (FP) PO SCH (10:00)
[2020-01-03] MEDS ORDERED: ASPIRIN COATED 81 MG TABLET.EC PO SCH (10:00)
[2020-01-03] MEDS ORDERED: PANTOPRAZOLE 40 MG TABLET PO SCH (10:00)
[2020-01-03 10:41] VITALS: BP 118/62; PULSE 82; TEMP 98.8
[2020-01-03] MEDS ORDERED: ATORVASTATIN CA 10 MG TABLET (FP) PO SCH (22:00)
--- NOTE | 2020-01-04 17:03 | PATH ---
Surgical Pathology Report Patient Name: MARKEL MODI Med. Rec. #: [id number] /Age/Gender: 1945 (Age: 74) / M Account: [id number] Location: [address] [place] [address]/[facility] Taken: 01/02/2020 Received: 01/02/2020 Reported: 01/04/2020 Physicians: Milan Velez M.D. Specimen(s) Received RIGHT HUMERAL HEAD BONE Clinical History Right shoulder arthritis Final Diagnosis RIGHT HUMERAL HEAD BONE, RIGHT TOTAL REVERSE SHOULDER REPLACEMENT: DEGENERATIVE JOINT DISEASE, RIGHT SHOULDER. Electronically Signed Jose Song M.D. Gross Description Received in formalin labeled "right humeral head," is a 6.2 x 5.5 x 3.2 cm portion of bone, consistent with a humeral head. The margin of resection is red yellow and smooth. The articular surface displays a 4.5 cm in greatest dimension area of eburnation. The underlying trabecular bone is focally necrotic. A novelties sales representative section is submitted in one cassette, following decalcification. /[facility]02[facility]
== END 2020-01-03 14:20 | disposition home or self-care (01) | DRG 483 ==
LOC: JASUSAT 04:41 → JASU-SURG 04:41 → J2C 04:42 → J6S 18:22
PROVIDERS: ADMIT Orthopaedic Surgery; ATTEND Orthopaedic Surgery
PROC: 0RRJ00Z Replacement of Right Shoulder Joint with Reverse Ball and Socket Synthetic Substitute, Open Approach (ICD-10-PCS; principal; 2020-01-02 09:00)
DX: M75.111 Incomplete rotator cuff tear or rupture of right shoulder, not specified as traumatic (principal); M19.011 Primary osteoarthritis, right shoulder; I10 Essential (primary) hypertension; E03.9 Hypothyroidism, unspecified; Z85.46 Personal history of malignant neoplasm of prostate
CPT/HCPCS: 73030-TC-RT-FY; 82962; 88304-TC; 88311-TC; 94760; 97116-GP; 97162-GP; J0131

== ENCOUNTER 2020-01-30 13:39 | Emergency (ER) | payer OTHER | END 2020-01-30 14:39 | disposition home or self-care (01) | LOC: JVIRT 13:39 | DX: Z11.59 Encounter for screening for other viral diseases (principal) | CPT/HCPCS: C9803; Q3014-GT; U0003 ==

== ENCOUNTER 2020-04-20 12:35 | Emergency (ER) | payer OTHER | END 2020-04-20 12:47 | disposition home or self-care (01) | LOC: JVIRT 12:35 | DX: Z20.822 Contact with and (suspected) exposure to COVID-19 (principal) | CPT/HCPCS: C9803; G2012-GT; U0003 ==

== ENCOUNTER 2020-05-07 11:12 | Emergency (ER) | payer OTHER | END 2020-05-07 11:49 | disposition home or self-care (01) | LOC: JVIRT 11:12 | DX: Z20.822 Contact with and (suspected) exposure to COVID-19 (principal) | CPT/HCPCS: C9803; G2012-GT; U0003 ==

== ENCOUNTER 2020-05-10 14:03 | Emergency (ER) | payer OTHER | END 2020-05-10 14:26 | disposition home or self-care (01) | LOC: JVIRT 14:03 | DX: Z11.52 Encounter for screening for COVID-19 (principal) | CPT/HCPCS: C9803; G2251-GT; U0003 ==

== ENCOUNTER 2020-05-12 14:31 | Emergency (ER) | payer OTHER | END 2020-05-12 16:05 | disposition home or self-care (01) | LOC: JVIRT 14:31 | DX: U07.1 COVID-19 (principal) | CPT/HCPCS: C9803; G2251-GT; U0003 ==

== ENCOUNTER 2020-05-13 14:49 | Emergency (ER) | payer OTHER ==
[2020-05-13 15:00] VITALS: BMI 30.5
[2020-05-13] MEDS ORDERED: BAMLANIVIMAB 700 MG in SODIUM CHLORIDE 250 ML IVPB ONE (15:14)
[2020-05-13] MEDS ORDERED: guaiFENesin/CODEINE 10 ML UNIT-DOSE CUPS PO ONE (15:29)
[2020-05-13 15:46] LABS: HEMATOCRIT 23.3 % (35.4-49); HEMOGLOBIN 8.2 GM/dL (11.7-16.9); MCH 32.8 pg (25.7-33.7); MCHC 35.4 g/dl (32.0-35.9); MEAN CELL VOLUME 92.7 fl (80-96); MEAN PLT VOLUME 9.2 fl (7.5-11.1); PLATELET COUNT 105 K/MM3 (134-434); RBC 2.51 M/mm3 (4.00-5.60); RDW 15.6 % (11.9-15.9); WHITE BLOOD COUNT 4.4 K/mm3 (4.0-10.0)
[2020-05-13 16:27] LABS: POTASSIUM 4.3 mmol/L (3.5-5.1)
[2020-05-13 16:28] LABS: BLOOD UREA NITROGEN 43.4 mg/dL (7-18)
[2020-05-13 16:31] LABS: CREATININE 1.9 mg/dL (0.55-1.3)
[2020-05-13] MEDS ORDERED: guaiFENesin/CODEINE 5 ML UNIT-DOSE CUPS PO ONE (16:44)
[2020-05-13 20:28] VITALS: BP 105/52; PULSE 64; TEMP 99.7
== END 2020-05-13 19:31 | disposition home or self-care (01) ==
LOC: JER 14:49 → JCOVINFU 14:49
PROC: 3E033GC Introduction of Other Therapeutic Substance into Peripheral Vein, Percutaneous Approach (ICD-10-PCS; principal; 2020-05-13)
DX: U07.1 COVID-19 (principal); J06.9 Acute upper respiratory infection, unspecified
CPT/HCPCS: 36415; 80048; 85027; 99284-25; M0239; Q0239

== ENCOUNTER 2020-06-19 16:27 | Emergency (ER) | payer OTHER ==
[2020-06-20 07:08] LABS: SARS-CoV-2 NAA Not Detected (Not Detected)
== END 2020-06-19 16:38 | disposition home or self-care (01) ==
LOC: JVIRT 16:27
DX: Z11.52 Encounter for screening for COVID-19 (principal)
CPT/HCPCS: C9803; G2251-GT; U0003; U0005

== ENCOUNTER 2020-11-10 11:05 | Inpatient (IN) | payer OTHER ==
[2020-11-10 12:09] LABS: BASO % 0.5 % (0-2.0); EOS % 0.5 % (0-4.5); HEMOGLOBIN 9.1 GM/dL (11.7-16.9); LYMPH % 6.7 % (8-40); MCH 33.2 pg (25.7-33.7); MCHC 35.2 g/dl (32.0-35.9); MEAN CELL VOLUME 94.3 fl (80-96); MEAN PLT VOLUME 8.9 fl (7.5-11.1); MONO % 5.4 % (3.8-10.2); NEUT % 86.9 % (42.8-82.8); PLATELET COUNT 240 10^3/uL (134-434); RBC 2.76 M/mm3 (4.00-5.60); RDW 15.1 % (11.9-15.9); WHITE BLOOD COUNT 11.9 K/mm3 (4.0-10.0)
[2020-11-10 12:35] LABS: CHLORIDE 98 mmol/L (98-107); SODIUM 133 mmol/L (136-145)
[2020-11-10] MEDS ORDERED: ACETAMINOPHEN 1000 MG/100 ML VIAL (NON FORMULARY) IVPB ONE (12:35)
[2020-11-10 12:37] LABS: BLOOD UREA NITROGEN 55.8 mg/dL (7-18); CALCIUM 9.4 mg/dL (8.5-10.1)
[2020-11-10 12:38] LABS: ALBUMIN 4.4 g/dl (3.4-5.0); ANION GAP 10 MMOL/L (8-16); CO2 25 mmol/L (21-32); GLUCOSE,RANDOM 120 mg/dL (74-106)
[2020-11-10 12:41] LABS: CREATININE 2.5 mg/dL (0.55-1.3); SGOT/AST 81 U/L (15-37); SGPT/ALT 22 U/L (13-61)
[2020-11-10 12:42] LABS: BILIRUBIN,TOTAL 0.7 mg/dL (0.2-1); TOT PROT 7.8 g/dl (6.4-8.2)
[2020-11-10 12:44] LABS: ALK PHOS 156 U/L (45-117)
[2020-11-10] MEDS ORDERED: ACETAMINOPHEN INJECTION 100 ML IVPB ONE ×2 (13:01→14:44)
[2020-11-10] MEDS ORDERED: CARBIDOPA/LEVODOPA 25/100 TABLET (FP) ONE (13:22)
[2020-11-10 13:25] LABS: N-TERMINAL BNP 144.2 pg/ml (5-450)
[2020-11-10 14:07] LABS: EPI CELLS 6 /uL (0-25.1); HYALINE CASTS 2 /uL (0-3.1); URINE APPEARANCE TURBID; URINE BACTERIA 421 /uL (0-1359); URINE BILIRUBIN NEGATIVE (NEGATIVE); URINE COLOR YELLOW; URINE GLUCOSE (UA) NEGATIVE (NEGATIVE); URINE KETONE NEGATIVE (NEGATIVE); URINE LEUK ESTERASE 3+ (NEGATIVE); URINE NITRITE NEGATIVE (NEGATIVE); URINE PROTEIN 1+ (NEGATIVE); URINE RBC 173 /uL (0-23.9); URINE UROBILINOGEN 0.2 mg/dL (0.2-1.0); URINE WBC 1611 /uL (0-25.8)
[2020-11-10] MEDS ORDERED: LIDOCAINE 5% TOPICAL PATCH TP ONE (14:17)
[2020-11-10] MEDS ORDERED: CEFTRIAXONE 1,000 MG in DEXTROSE 5%-WATER - 50 ML IVPB ONE (14:17)
[2020-11-10] MEDS ORDERED: CEFTRIAXONE 1 GM/50 ML BAG ONE (14:29)
[2020-11-10] MEDS ORDERED: LIDOCAINE 5% TOPICAL PATCH ONE ×2 (14:29→14:38)
[2020-11-10] MEDS ORDERED: MINERAL OIL ENEMA 133 ML ENEMA PR ONE (17:51)
[2020-11-11] MEDS ORDERED: PRAMIPEXOLE DIHYDROCHLORIDE 1.5 MG TABLET PO SCH ×2 (00:09→10:00)
[2020-11-11] MEDS ORDERED: MELATONIN 1 MG TABLET PO SCH ×2 (00:10→22:00)
[2020-11-11] MEDS ORDERED: CARBIDOPA/LEVODOPA 25/100 TABLET (FP) PO ONE (00:22)
[2020-11-11] MEDS ORDERED: MELATONIN 1 MG TABLET PO ONE (00:23)
[2020-11-11] MEDS ORDERED: PRAMIPEXOLE DIHYDROCHLORIDE 1.5 MG TABLET PO ONE (00:26)
[2020-11-11] MEDS ORDERED: CARBIDOPA/LEVODOPA 25/100 TABLET (FP) ONE (00:44)
[2020-11-11] MEDS ORDERED: MINERAL OIL ENEMA 133 ML ENEMA RC ONE (01:34)
[2020-11-11] MEDS: BICALUTAMIDE 50 MG TABLET (FP) PO SCH ×2 (01:59→21:54)
[2020-11-11] MEDS ORDERED: LACTULOSE 20 GM/30 ML UDC (FOR ORAL USE ONLY) PO ONE (02:33)
[2020-11-11] MEDS ORDERED: LACTULOSE 20 GM/30 ML UDC (FOR ORAL USE ONLY) ONE (02:41)
[2020-11-11 05:13] VITALS: BMI 32.5
[2020-11-11] MEDS: ACETAMINOPHEN 325 MG TABLET (FP) PO PRN (06:51)
[2020-11-11] MEDS: CARBIDOPA/LEVODOPA 25/100 TABLET (FP) PO SCH ×3 (06:51→21:55)
[2020-11-11] MEDS: LEVOTHYROXINE NA 125 MCG TABLET (FP) PO SCH (06:51)
[2020-11-11] MEDS: sitaGLIPtin PHOSPHATE 50 MG TABLET PO SCH (06:51)
[2020-11-11] MEDS ORDERED: LEVOTHYROXINE NA 125 MCG TABLET (FP) PO SCH (07:00)
[2020-11-11 09:27] LABS: BASO % 0.7 % (0-2.0); EOS % 1.5 % (0-4.5); HEMATOCRIT 24.1 % (35.4-49); HEMOGLOBIN 8.6 GM/dL (11.7-16.9); LYMPH % 8.8 % (8-40); MCH 33.7 pg (25.7-33.7); MCHC 35.6 g/dl (32.0-35.9); MEAN CELL VOLUME 94.6 fl (80-96); MEAN PLT VOLUME 9.1 fl (7.5-11.1); MONO % 5.2 % (3.8-10.2); NEUT % 83.8 % (42.8-82.8); PLATELET COUNT 216 10^3/uL (134-434); RBC 2.55 M/mm3 (4.00-5.60); RDW 15.5 % (11.9-15.9); WHITE BLOOD COUNT 10.4 K/mm3 (4.0-10.0)
[2020-11-11 09:49] LABS: CALCIUM 9.1 mg/dL (8.5-10.1)
[2020-11-11 09:50] LABS: BLOOD UREA NITROGEN 53.2 mg/dL (7-18)
[2020-11-11 09:53] LABS: CREATININE 2.2 mg/dL (0.55-1.3)
[2020-11-11] MEDS ORDERED: LOSARTAN POTASSIUM 50 MG TABLET PO SCH (10:00)
[2020-11-11] MEDS ORDERED: ENOXAPARIN NA (PORCINE) 40 MG/0.4 ML DISP.SYRIN SQ SCH (10:00)
[2020-11-11] MEDS ORDERED: PATIENT'S OWN MEDICATION (NON-FORMULARY) (Ubidecarenone [Co Q-10] 200 MG Capsule) PO SCH (10:00)
[2020-11-11] MEDS ORDERED: PATIENT'S OWN MEDICATION (NON-FORMULARY) (Cranberry Fruit Extract [Cranberry] 250 MG Capsu PO SCH (10:00)
[2020-11-11] MEDS ORDERED: ELDERBERRY FRUIT AND FLOWER PO SCH (10:00)
[2020-11-11] MEDS ORDERED: [UNRECOGNIZED DRUG - OTHER] PO SCH (10:00)
[2020-11-11] MEDS ORDERED: HYDROCHLOROTHIAZIDE 25 MG TABLET (FP) PO SCH (10:00)
[2020-11-11] MEDS ORDERED: PATIENT'S OWN MEDICATION (NON-FORMULARY) (C,E,Zinc,Copper 11/Omega3s/Lut [Ocuvite Adult 50 PO SCH (10:00)
[2020-11-11] MEDS ORDERED: PATIENT'S OWN MEDICATION (NON-FORMULARY) (Benzonatate [Benzonatate] 100 MG Capsule) PO SCH (10:00)
[2020-11-11] MEDS ORDERED: FUROSEMIDE 20 MG TABLET (FP) PO SCH (10:00)
[2020-11-11] MEDS ORDERED: PT OWN MED DRAWER 7, Y5N ONE (10:38)
[2020-11-11] MEDS ORDERED: POLYETHYLENE GLYCOL (HEALTHYLAX) 3350 17 GM PACKET PO SCH ×2 (10:44→11:00)
[2020-11-11] MEDS: traMADol HCL 50 MG TABLET PO PRN ×2 (10:47→17:26)
[2020-11-11] MEDS: LACTOBACILLUS ACIDOPHILUS 1 TABLET PO SCH (10:47)
[2020-11-11] MEDS: MULTIVITAMINS (DAILY MVI) TABLET (FP) PO SCH (10:47)
[2020-11-11] MEDS: GABAPENTIN 100 MG CAPSULE PO SCH ×2 (10:47→17:27)
[2020-11-11] MEDS: FERROUS SO4 325 MG TABLET (FP) PO SCH (10:47)
[2020-11-11] MEDS: ZINC SULFATE 220 MG CAPSULE (FP) PO SCH (10:47)
[2020-11-11] MEDS: PANTOPRAZOLE 40 MG TABLET PO SCH (10:47)
[2020-11-11] MEDS: ASCORBIC ACID 500 MG TABLET (FP) PO SCH (10:47)
[2020-11-11] MEDS: POLYETHYLENE GLYCOL 3350 119 GM BTL PO SCH ×2 (10:51→11:07)
[2020-11-11] MEDS: PRAMIPEXOLE DIHYDROCHLORIDE 1.5 MG TABLET PO SCH ×2 (10:52→21:56)
[2020-11-11 12:30] LABS: INR 1.06 (0.83-1.09); PROTHROMBIN TIME (PATIENT) 12.8 SEC (9.7-13.0)
[2020-11-11 12:33] LABS: ACTIVATED PTT 26.5 SECONDS (25.2-36.5)
[2020-11-11] MEDS ORDERED: SODIUM CHLORIDE 250 ML IV STA (13:10)
[2020-11-11] MEDS ORDERED: DEXTROSE 5%-WATER 100 ML IVPB ONE (13:36)
[2020-11-11] MEDS: CHOLECALCIFEROL (VIT D3) 5000 UNITS (125 MCG) CAP PO SCH (13:52)
[2020-11-11] MEDS: POLYETHYLENE GLYCOL (HEALTHYLAX) 3350 17 GM PACKET PO SCH ×2 (13:52→21:54)
[2020-11-11] MEDS: CYANOCOBALAMIN (VITAMIN B-12) 100 MCG TABLET PO SCH (13:52)
[2020-11-11] MEDS ORDERED: WITCH HAZEL 50% (TUCKS) 40 PAD/JAR PAD TP PRN (14:49)
[2020-11-11] MEDS: CEFTRIAXONE 2 GM in DEXTROSE 5%-WATER 100 ML IVPB SCH (15:15)
[2020-11-11] MEDS ORDERED: SODIUM CHLORIDE 250 ML IV ONE (15:15)
[2020-11-11] MEDS: SODIUM CHLORIDE 1,000 ML IV SCH ×2 (16:46→22:47)
[2020-11-11] MEDS: HYDROCORTISONE 2.5% TOPICAL CREAM 30 GM TUBE TP SCH (17:33)
[2020-11-11] MEDS: ATORVASTATIN CA 10 MG TABLET (FP) PO SCH (21:54)
[2020-11-11] MEDS: TAMSULOSIN HCL 0.4 MG CAP PO SCH (21:54)
[2020-11-11] MEDS: MELATONIN 1 MG TABLET PO SCH (21:55)
[2020-11-11] MEDS ORDERED: PATIENT'S OWN MEDICATION (NON-FORMULARY) (Silodosin [Rapaflo] 8 MG Capsule) PO SCH (22:00)
[2020-11-12] MEDS ORDERED: MAG HYDROX/AL HYDROX/SIMETH 30 ML UNIT-DOSE CUP PO PRN (03:30)
[2020-11-12] MEDS: POLYETHYLENE GLYCOL (HEALTHYLAX) 3350 17 GM PACKET PO SCH ×3 (06:52→21:53)
[2020-11-12] MEDS: LEVOTHYROXINE NA 125 MCG TABLET (FP) PO SCH (06:52)
[2020-11-12] MEDS: CARBIDOPA/LEVODOPA 25/100 TABLET (FP) PO SCH ×3 (06:52→22:10)
[2020-11-12] MEDS: sitaGLIPtin PHOSPHATE 50 MG TABLET PO SCH (06:54)
[2020-11-12] MEDS ORDERED: PT OWN MED DRAWER 7, Y5N ONE ×3 (10:17→22:30)
[2020-11-12] MEDS ORDERED: DEXTROSE 5%-WATER 100 ML IVPB ONE (10:19)
[2020-11-12] MEDS: ZINC SULFATE 220 MG CAPSULE (FP) PO SCH (10:22)
[2020-11-12] MEDS: traMADol HCL 50 MG TABLET PO PRN ×2 (10:22→22:17)
[2020-11-12] MEDS: HYDROCORTISONE 2.5% TOPICAL CREAM 30 GM TUBE TP SCH (10:23)
[2020-11-12] MEDS: LACTOBACILLUS ACIDOPHILUS 1 TABLET PO SCH (10:23)
[2020-11-12] MEDS: FERROUS SO4 325 MG TABLET (FP) PO SCH (10:23)
[2020-11-12] MEDS: ASCORBIC ACID 500 MG TABLET (FP) PO SCH (10:23)
[2020-11-12] MEDS: PANTOPRAZOLE 40 MG TABLET PO SCH (10:23)
[2020-11-12] MEDS: ACETAMINOPHEN 325 MG TABLET (FP) PO PRN (10:23)
[2020-11-12] MEDS: CHOLECALCIFEROL (VIT D3) 5000 UNITS (125 MCG) CAP PO SCH (10:24)
[2020-11-12] MEDS: MULTIVITAMINS (DAILY MVI) TABLET (FP) PO SCH (10:25)
[2020-11-12] MEDS: PRAMIPEXOLE DIHYDROCHLORIDE 1.5 MG TABLET PO SCH ×2 (10:25→22:13)
[2020-11-12] MEDS: CYANOCOBALAMIN (VITAMIN B-12) 100 MCG TABLET PO SCH (10:25)
[2020-11-12] MEDS: CEFTRIAXONE 2 GM in DEXTROSE 5%-WATER 100 ML IVPB SCH (10:26)
[2020-11-12 10:40] LABS: HEMATOCRIT 23.6 % (35.4-49); HEMOGLOBIN 8.2 GM/dL (11.7-16.9); MCH 33.4 pg (25.7-33.7); MEAN CELL VOLUME 95.4 fl (80-96); MEAN PLT VOLUME 9.2 fl (7.5-11.1); PLATELET COUNT 215 10^3/uL (134-434); RBC 2.47 M/mm3 (4.00-5.60); RDW 15.6 % (11.9-15.9); WHITE BLOOD COUNT 8.5 K/mm3 (4.0-10.0)
[2020-11-12] MEDS: GABAPENTIN 100 MG CAPSULE PO SCH ×2 (10:51→18:27)
[2020-11-12 11:11] LABS: CALCIUM 8.8 mg/dL (8.5-10.1)
[2020-11-12 11:12] LABS: ALBUMIN 3.6 g/dl (3.4-5.0); BLOOD UREA NITROGEN 47.2 mg/dL (7-18); MAGNESIUM 2.7 mg/dL (1.8-2.4)
[2020-11-12 11:14] LABS: URIC ACID 7.7 mg/dL (2.6-7.2)
[2020-11-12 11:16] LABS: BILIRUBIN,TOTAL 0.4 mg/dL (0.2-1); TOT PROT 6.9 g/dl (6.4-8.2)
[2020-11-12] MEDS ORDERED: PIPERACILLIN/TAZOBACTAM 2.25 GM VIAL IVPB ONE ×2 (12:39→18:03)
[2020-11-12] MEDS ORDERED: DEXTROSE 5%-WATER - 50 ML IVPB ONE ×2 (12:39→18:04)
[2020-11-12] MEDS: PIPERACILLIN/TAZOB 2.25 GM 2.25 GM in DEXTROSE 5%-WATER - 50 ML IVPB SCH ×2 (12:51→18:28)
[2020-11-12] MEDS: MELATONIN 1 MG TABLET PO SCH (22:09)
[2020-11-12] MEDS: ATORVASTATIN CA 10 MG TABLET (FP) PO SCH (22:09)
[2020-11-12] MEDS: TAMSULOSIN HCL 0.4 MG CAP PO SCH (22:09)
[2020-11-12] MEDS: BICALUTAMIDE 50 MG TABLET (FP) PO SCH (22:11)
[2020-11-13] MEDS ORDERED: PIPERACILLIN/TAZOBACTAM 2.25 GM VIAL IVPB ONE ×3 (02:07→17:43)
[2020-11-13] MEDS ORDERED: DEXTROSE 5%-WATER - 50 ML IVPB ONE ×3 (02:07→17:43)
[2020-11-13] MEDS: PIPERACILLIN/TAZOB 2.25 GM 2.25 GM in DEXTROSE 5%-WATER - 50 ML IVPB SCH ×3 (02:14→17:54)
[2020-11-13] MEDS: POLYETHYLENE GLYCOL (HEALTHYLAX) 3350 17 GM PACKET PO SCH ×3 (06:14→21:09)
[2020-11-13] MEDS: sitaGLIPtin PHOSPHATE 50 MG TABLET PO SCH (06:14)
[2020-11-13] MEDS: traMADol HCL 50 MG TABLET PO PRN ×3 (06:14→21:07)
[2020-11-13] MEDS: LEVOTHYROXINE NA 125 MCG TABLET (FP) PO SCH (06:15)
[2020-11-13] MEDS: CARBIDOPA/LEVODOPA 25/100 TABLET (FP) PO SCH ×3 (06:15→21:06)
[2020-11-13 10:03] LABS: HEMATOCRIT 23.2 % (35.4-49); HEMOGLOBIN 8.2 GM/dL (11.7-16.9); MCH 33.2 pg (25.7-33.7); MCHC 35.4 g/dl (32.0-35.9); MEAN CELL VOLUME 93.6 fl (80-96); MEAN PLT VOLUME 8.6 fl (7.5-11.1); PLATELET COUNT 215 10^3/uL (134-434); RBC 2.48 M/mm3 (4.00-5.60); RDW 15.3 % (11.9-15.9); WHITE BLOOD COUNT 9.4 K/mm3 (4.0-10.0)
[2020-11-13] MEDS ORDERED: PT OWN MED DRAWER 7, Y5N ONE ×3 (10:27→21:11)
[2020-11-13 10:31] LABS: ALBUMIN 3.6 g/dl (3.4-5.0); BLOOD UREA NITROGEN 36.5 mg/dL (7-18); CALCIUM 8.9 mg/dL (8.5-10.1); MAGNESIUM 2.5 mg/dL (1.8-2.4)
[2020-11-13 10:34] LABS: CREATININE 1.8 mg/dL (0.55-1.3)
[2020-11-13] MEDS: ZINC SULFATE 220 MG CAPSULE (FP) PO SCH (10:34)
[2020-11-13] MEDS: FERROUS SO4 325 MG TABLET (FP) PO SCH (10:34)
[2020-11-13] MEDS: MULTIVITAMINS (DAILY MVI) TABLET (FP) PO SCH (10:34)
[2020-11-13] MEDS: PANTOPRAZOLE 40 MG TABLET PO SCH (10:35)
[2020-11-13] MEDS: ASCORBIC ACID 500 MG TABLET (FP) PO SCH (10:35)
[2020-11-13] MEDS: CYANOCOBALAMIN (VITAMIN B-12) 100 MCG TABLET PO SCH (10:35)
[2020-11-13] MEDS: LACTOBACILLUS ACIDOPHILUS 1 TABLET PO SCH (10:35)
[2020-11-13 10:36] LABS: BILIRUBIN,TOTAL 0.4 mg/dL (0.2-1); TOT PROT 7.1 g/dl (6.4-8.2)
[2020-11-13] MEDS: HYDROCORTISONE 2.5% TOPICAL CREAM 30 GM TUBE TP SCH (10:36)
[2020-11-13] MEDS: CHOLECALCIFEROL (VIT D3) 5000 UNITS (125 MCG) CAP PO SCH (10:36)
[2020-11-13] MEDS: PRAMIPEXOLE DIHYDROCHLORIDE 1.5 MG TABLET PO SCH ×2 (10:36→21:18)
[2020-11-13] MEDS: CLOTRIMAZOLE/BETAMET DIPROP 15 GM TUBE TP SCH ×2 (10:36→21:14)
[2020-11-13] MEDS: GABAPENTIN 100 MG CAPSULE PO SCH ×2 (12:37→16:17)
[2020-11-13] MEDS: ACETAMINOPHEN 325 MG TABLET (FP) PO PRN (15:02)
[2020-11-13] MEDS ORDERED: FUROSEMIDE 20 MG TABLET (FP) PO ONE (15:37)
[2020-11-13] MEDS: ATORVASTATIN CA 10 MG TABLET (FP) PO SCH (21:07)
[2020-11-13] MEDS: TAMSULOSIN HCL 0.4 MG CAP PO SCH (21:09)
[2020-11-13] MEDS: MELATONIN 1 MG TABLET PO SCH (21:09)
[2020-11-13] MEDS: BICALUTAMIDE 50 MG TABLET (FP) PO SCH (23:01)
[2020-11-14] MEDS ORDERED: PIPERACILLIN/TAZOBACTAM 2.25 GM VIAL IVPB ONE ×2 (02:13→08:15)
[2020-11-14] MEDS ORDERED: DEXTROSE 5%-WATER - 50 ML IVPB ONE ×2 (02:13→08:15)
[2020-11-14] MEDS: PIPERACILLIN/TAZOB 2.25 GM 2.25 GM in DEXTROSE 5%-WATER - 50 ML IVPB SCH ×2 (03:01→10:00)
[2020-11-14] MEDS: POLYETHYLENE GLYCOL (HEALTHYLAX) 3350 17 GM PACKET PO SCH ×2 (06:06→13:29)
[2020-11-14] MEDS: sitaGLIPtin PHOSPHATE 50 MG TABLET PO SCH (06:07)
[2020-11-14] MEDS: CARBIDOPA/LEVODOPA 25/100 TABLET (FP) PO SCH ×2 (06:08→13:28)
[2020-11-14] MEDS: LEVOTHYROXINE NA 125 MCG TABLET (FP) PO SCH (06:08)
[2020-11-14 09:30] LABS: HEMATOCRIT 23.4 % (35.4-49); HEMOGLOBIN 8.2 GM/dL (11.7-16.9); MCH 32.7 pg (25.7-33.7); MCHC 35.1 g/dl (32.0-35.9); MEAN CELL VOLUME 93.1 fl (80-96); MEAN PLT VOLUME 8.4 fl (7.5-11.1); PLATELET COUNT 201 10^3/uL (134-434); RBC 2.51 M/mm3 (4.00-5.60); RDW 15.3 % (11.9-15.9); WHITE BLOOD COUNT 9.2 K/mm3 (4.0-10.0)
[2020-11-14] MEDS ORDERED: HYDROCORTISONE 2.5% TOPICAL CREAM 30 GM TUBE TP PRN (09:35)
[2020-11-14 09:59] LABS: BLOOD UREA NITROGEN 31.1 mg/dL (7-18)
[2020-11-14] MEDS: LACTOBACILLUS ACIDOPHILUS 1 TABLET PO SCH (10:00)
[2020-11-14] MEDS: MULTIVITAMINS (DAILY MVI) TABLET (FP) PO SCH (10:00)
[2020-11-14] MEDS: FERROUS SO4 325 MG TABLET (FP) PO SCH (10:00)
[2020-11-14] MEDS: PANTOPRAZOLE 40 MG TABLET PO SCH (10:00)
[2020-11-14] MEDS: ZINC SULFATE 220 MG CAPSULE (FP) PO SCH (10:00)
[2020-11-14] MEDS: SIMETHICONE 80 MG TAB.CHEW (FP) PO PRN ×2 (10:00→13:28)
[2020-11-14] MEDS: ASCORBIC ACID 500 MG TABLET (FP) PO SCH (10:00)
[2020-11-14] MEDS: CYANOCOBALAMIN (VITAMIN B-12) 100 MCG TABLET PO SCH (10:01)
[2020-11-14] MEDS: PRAMIPEXOLE DIHYDROCHLORIDE 1.5 MG TABLET PO SCH (10:01)
[2020-11-14] MEDS: CLOTRIMAZOLE/BETAMET DIPROP 15 GM TUBE TP SCH (10:01)
[2020-11-14 10:02] LABS: CREATININE 1.7 mg/dL (0.55-1.3)
[2020-11-14] MEDS: CHOLECALCIFEROL (VIT D3) 5000 UNITS (125 MCG) CAP PO SCH (10:02)
[2020-11-14] MEDS ORDERED: IRON SUCROSE INJECTION 200 MG in SODIUM CHLORIDE 90 ML IVPB ONE (10:07)
[2020-11-14 20:32] VITALS: BP 138/78; PULSE 71; TEMP 98.1
[2020-11-15] MEDS ORDERED: FUROSEMIDE 20 MG TABLET (FP) PO SCH (10:00)
== END 2020-11-14 20:35 | DRG 552 ==
LOC: JER 11:05 → JERBED 20:21 → J5S 11-11 04:22
PROVIDERS: ADMIT Family Medicine; ATTEND Family Medicine
PROC: 0T9B70Z Drainage of Bladder with Drainage Device, Via Natural or Artificial Opening (ICD-10-PCS; principal; 2020-11-12)
DX: S32.19XA Other fracture of sacrum, initial encounter for closed fracture (principal); S32.9XXA Fracture of unspecified parts of lumbosacral spine and pelvis, initial encounter for closed fracture; S32.039A Unspecified fracture of third lumbar vertebra, initial encounter for closed fracture; N39.0 Urinary tract infection, site not specified; N17.9 Acute kidney failure, unspecified; I13.0 Hypertensive heart and chronic kidney disease with heart failure and stage 1 through stage 4 chronic kidney disease, or unspecified chronic kidney disease; E11.22 Type 2 diabetes mellitus with diabetic chronic kidney disease; I50.9 Heart failure, unspecified; N18.9 Chronic kidney disease, unspecified; E03.9 Hypothyroidism, unspecified; E78.5 Hyperlipidemia, unspecified; N40.1 Benign prostatic hyperplasia with lower urinary tract symptoms; R33.8 Other retention of urine; K59.03 Drug induced constipation; T40.2X5A Adverse effect of other opioids, initial encounter; R26.2 Difficulty in walking, not elsewhere classified; N13.9 Obstructive and reflux uropathy, unspecified; G20 Parkinson's disease; D72.829 Elevated white blood cell count, unspecified; B96.5 Pseudomonas (aeruginosa) (mallei) (pseudomallei) as the cause of diseases classified elsewhere; W18.30XA Fall on same level, unspecified, initial encounter; Y92.098 Other place in other non-institutional residence as the place of occurrence of the external cause; Z85.46 Personal history of malignant neoplasm of prostate
CPT/HCPCS: 36415; 71045-TC-FY; 74176-TC; 80048; 80053; 81003; 82550; 82553; 82570; 82728; 82962; 83540; 83605; 83735; 83880; 84100; 84156; 84300; 84439; 84443; 84481; 84484; 84540; 84550; 85025; 85027; 85610; 85730; 87040; 87086; 87186; 93005; 93010; 97116-GP; 97161-GP; 99285-25; C9803; J0131; J1756; Q9967; U0003; U0005

== ENCOUNTER 2020-11-29 19:35 | Emergency (ER) | payer OTHER ==
[2020-11-29 19:38] VITALS: BP 124/78; PULSE 95; TEMP 97.9; BMI 32.8
== END 2020-11-29 20:13 | disposition home or self-care (01) ==
LOC: JERFT 19:35
DX: T83.011A Breakdown (mechanical) of indwelling urethral catheter, initial encounter (principal)
CPT/HCPCS: 99281-25

== ENCOUNTER 2021-01-05 13:58 | Inpatient (IN) | payer OTHER ==
[2021-01-05] MEDS ORDERED: LIDOCAINE 5% TOPICAL PATCH TP ONE (16:48)
[2021-01-05] MEDS ORDERED: KETOROLAC TROMETHAMINE 30 MG/1 ML VIAL IM ONE (16:48)
[2021-01-05] MEDS ORDERED: KETOROLAC TROMETHAMINE 30 MG/1 ML VIAL ONE (16:51)
[2021-01-05] MEDS ORDERED: LIDOCAINE 5% TOPICAL PATCH ONE (16:51)
[2021-01-05] MEDS ORDERED: morphine CARPU-JECT 4 MG/1 ML DISP.SYRIN IVPUSH ONE (17:28)
[2021-01-05] MEDS ORDERED: morphine SULFATE 4 MG/ML VIAL ONE (17:53)
[2021-01-05 18:50] LABS: BASO % 0.6 % (0-2.0); EOS % 0.3 % (0-4.5); HEMATOCRIT 24.2 % (35.4-49); HEMOGLOBIN 8.3 GM/dL (11.7-16.9); LYMPH % 7.4 % (8-40); MCH 32.2 pg (25.7-33.7); MCHC 34.5 g/dl (32.0-35.9); MEAN CELL VOLUME 93.5 fl (80-96); MEAN PLT VOLUME 8.4 fl (7.5-11.1); MONO % 4.6 % (3.8-10.2); NEUT % 87.1 % (42.8-82.8); PLATELET COUNT 175 10^3/uL (134-434); RBC 2.59 M/mm3 (4.00-5.60); RDW 15.6 % (11.9-15.9); WHITE BLOOD COUNT 8.5 K/mm3 (4.0-10.0)
[2021-01-05 18:58] LABS: INR 1.09 (0.83-1.09); PROTHROMBIN TIME (PATIENT) 12.8 SEC (9.7-13.0)
[2021-01-05 19:00] LABS: ACTIVATED PTT 27.3 SECONDS (25.2-36.5)
[2021-01-05 19:10] LABS: CALCIUM 9.3 mg/dL (8.5-10.1)
[2021-01-05 19:11] LABS: ALBUMIN 3.5 g/dl (3.4-5.0)
[2021-01-05 19:14] LABS: CREATININE 1.2 mg/dL (0.55-1.3)
[2021-01-05 19:15] LABS: BILIRUBIN,TOTAL 0.5 mg/dL (0.2-1)
[2021-01-05 19:16] LABS: TOT PROT 6.5 g/dl (6.4-8.2)
[2021-01-05] MEDS ORDERED: HYDROCORTISONE 2.5% TOPICAL CREAM 30 GM TUBE TP PRN (20:06)
[2021-01-05] MEDS ORDERED: MAG HYDROX/AL HYDROX/SIMETH 30 ML UNIT-DOSE CUP PO PRN (20:06)
[2021-01-05] MEDS ORDERED: POLYETHYLENE GLYCOL (HEALTHYLAX) 3350 17 GM PACKET PO PRN (20:06)
[2021-01-05] MEDS ORDERED: ACETAMINOPHEN 325 MG TABLET (FP) PO PRN (20:06)
[2021-01-05] MEDS ORDERED: WITCH HAZEL 50% (TUCKS) 40 PAD/JAR PAD TP PRN (20:06)
[2021-01-05] MEDS ORDERED: PRAMIPEXOLE DIHYDROCHLORIDE 1.5 MG TABLET PO SCH (22:00)
[2021-01-05] MEDS ORDERED: MELATONIN 1 MG TABLET PO SCH (22:00)
[2021-01-05] MEDS ORDERED: LIDOCAINE PATCH REMOVAL MC SCH (22:00)
[2021-01-05] MEDS ORDERED: SENNOSIDES 8.6MG TABLET (FP) PO SCH (22:00)
[2021-01-05] MEDS ORDERED: BICALUTAMIDE 50 MG TABLET (FP) PO SCH (22:00)
[2021-01-05] MEDS ORDERED: ATORVASTATIN CA 10 MG TABLET (FP) PO SCH (22:00)
[2021-01-05] MEDS ORDERED: SENNOSIDES 8.6MG TABLET (FP) PO ONE (22:31)
[2021-01-05] MEDS ORDERED: TAMSULOSIN HCL 0.4 MG CAP ONE (22:32)
[2021-01-05] MEDS ORDERED: CARBIDOPA/LEVODOPA 25/100 TABLET (FP) ONE (22:32)
[2021-01-05] MEDS ORDERED: ATORVASTATIN CA 10 MG TABLET (FP) ONE (22:32)
[2021-01-05] MEDS ORDERED: ACETAMINOPHEN 325 MG TABLET (FP) ONE (23:01)
[2021-01-05] MEDS: CARBIDOPA/LEVODOPA 25/100 TABLET (FP) PO SCH (23:08)
[2021-01-05] MEDS: INSULIN SLIDING SCALE (NOVOLOG) 1 VIAL SQ SCH (23:08)
[2021-01-05] MEDS: TAMSULOSIN HCL 0.4 MG CAP PO SCH (23:08)
[2021-01-06] MEDS ORDERED: DEXTROSE 5%-NORMAL SALINE 1,000 ML IV SCH
[2021-01-06] MEDS ORDERED: ACETAMINOPHEN 325 MG TABLET (FP) ONE (00:37)
[2021-01-06] MEDS ORDERED: NITROFURANTOIN MACROCRYSTAL 50 MG CAPSULE (FP) ONE (00:37)
[2021-01-06] MEDS: NITROFURANTOIN MACROCRYSTAL 50 MG CAPSULE (FP) PO SCH ×4 (00:43→18:07)
[2021-01-06 01:39] VITALS: BMI 27.4
[2021-01-06] MEDS ORDERED: ACETAMINOPHEN 1000 MG/100 ML VIAL IVPB PRN (04:27)
[2021-01-06] MEDS: INSULIN SLIDING SCALE (NOVOLOG) 1 VIAL SQ SCH ×5 (05:19→23:05)
[2021-01-06] MEDS: CARBIDOPA/LEVODOPA 25/100 TABLET (FP) PO SCH ×3 (05:55→21:17)
[2021-01-06] MEDS ORDERED: LEVOTHYROXINE NA 150 MCG TABLET PO SCH (07:00)
[2021-01-06] MEDS ORDERED: TAMSULOSIN HCL 0.4 MG CAP PO SCH (08:30)
[2021-01-06 08:55] LABS: BASO % 0.7 % (0-2.0); EOS % 2.5 % (0-4.5); HEMATOCRIT 23.1 % (35.4-49); LYMPH % 10.3 % (8-40); MCH 32.6 pg (25.7-33.7); MCHC 34.8 g/dl (32.0-35.9); MEAN CELL VOLUME 93.7 fl (80-96); MEAN PLT VOLUME 8.5 fl (7.5-11.1); MONO % 6.5 % (3.8-10.2); PLATELET COUNT 158 10^3/uL (134-434); RBC 2.46 M/mm3 (4.00-5.60); RDW 14.9 % (11.9-15.9); WHITE BLOOD COUNT 5.7 K/mm3 (4.0-10.0)
[2021-01-06 09:07] LABS: BLOOD UREA NITROGEN 19.6 mg/dL (7-18); CALCIUM 8.7 mg/dL (8.5-10.1)
[2021-01-06 09:11] LABS: CREATININE 1.4 mg/dL (0.55-1.3)
[2021-01-06] MEDS ORDERED: PT OWN MED DRAWER 7, Y5N ONE ×2 (09:39→21:08)
[2021-01-06] MEDS: TAMSULOSIN HCL 0.4 MG CAP PO SCH ×2 (09:44→21:17)
[2021-01-06] MEDS ORDERED: CYANOCOBALAMIN 1,000 MCG TABLET (FP) PO SCH (10:00)
[2021-01-06] MEDS ORDERED: BICALUTAMIDE 50 MG TABLET (FP) PO SCH (10:00)
[2021-01-06] MEDS ORDERED: FERROUS SO4 325 MG TABLET (FP) PO SCH (10:00)
[2021-01-06] MEDS ORDERED: ZINC SULFATE 220 MG CAPSULE (FP) PO SCH (10:00)
[2021-01-06] MEDS ORDERED: PANTOPRAZOLE 40 MG TABLET PO SCH (10:00)
[2021-01-06] MEDS ORDERED: ceFAZolin SODIUM 1 GM VIAL ONE (12:37)
[2021-01-06] MEDS ORDERED: VANCOMYCIN 1,000 MG VIAL (RESTRICTED TO ID ONLY) ONE (12:37)
[2021-01-06] MEDS ORDERED: MIDAZOLAM HCL 2 MG/2 ML SINGLE DOSE VIAL ONE (14:08)
[2021-01-06] MEDS ORDERED: oxyCODONE HCL 5 MG TABLET PO PRN ×2 (15:28→16:15)
[2021-01-06] MEDS ORDERED: LACTATED RINGERS SOLUTION 1,000 ML IV SCH (15:30)
[2021-01-06] MEDS ORDERED: ONDANSETRON 4 MG/2 ML VIAL IVPUSH PRN (15:32)
[2021-01-06] MEDS ORDERED: POLYETHYLENE GLYCOL (HEALTHYLAX) 3350 17 GM PACKET PO PRN (16:15)
[2021-01-06] MEDS ORDERED: WITCH HAZEL 50% (TUCKS) 40 PAD/JAR PAD TP PRN (16:15)
[2021-01-06] MEDS ORDERED: HYDROCORTISONE 2.5% TOPICAL CREAM 30 GM TUBE TP PRN (16:15)
[2021-01-06] MEDS: DEXTROSE 5%-NORMAL SALINE 1,000 ML IV SCH (17:53)
[2021-01-06] MEDS: ACETAMINOPHEN 1000 MG/100 ML VIAL IVPB PRN (21:16)
[2021-01-06] MEDS: BICALUTAMIDE 50 MG TABLET (FP) PO SCH (21:17)
[2021-01-06] MEDS: SENNOSIDES 8.6MG TABLET (FP) PO SCH (21:17)
[2021-01-06] MEDS: ATORVASTATIN CA 10 MG TABLET (FP) PO SCH (21:17)
[2021-01-06] MEDS: CEFAZOLIN 2 GM in DEXTROSE 5%-WATER - 100 ML IVPB SCH (21:17)
[2021-01-06] MEDS: MELATONIN 1 MG TABLET PO SCH (21:17)
[2021-01-06] MEDS: MAG HYDROX/AL HYDROX/SIMETH 30 ML UNIT-DOSE CUP PO PRN (21:30)
[2021-01-06] MEDS ORDERED: CEFAZOLIN 2 GM in DEXTROSE 5%-WATER - 100 ML IVPB SCH (22:00)
[2021-01-07] MEDS ORDERED: PT OWN MED DRAWER 7, Y5N ONE ×2 (00:10→21:26)
[2021-01-07] MEDS: NITROFURANTOIN MACROCRYSTAL 50 MG CAPSULE (FP) PO SCH ×5 (00:22→23:38)
[2021-01-07] MEDS ORDERED: CYCLOBENZAPRINE HCL 5 MG TABLET PO ONE (03:26)
[2021-01-07] MEDS: INSULIN SLIDING SCALE (NOVOLOG) 1 VIAL SQ SCH ×4 (03:48→23:37)
[2021-01-07] MEDS: ACETAMINOPHEN 1000 MG/100 ML VIAL IVPB PRN ×3 (06:08→21:33)
[2021-01-07] MEDS: LEVOTHYROXINE NA 150 MCG TABLET PO SCH (06:09)
[2021-01-07] MEDS: CARBIDOPA/LEVODOPA 25/100 TABLET (FP) PO SCH ×3 (06:09→23:13)
[2021-01-07] MEDS: CEFAZOLIN 2 GM in DEXTROSE 5%-WATER - 100 ML IVPB SCH (06:36)
[2021-01-07] MEDS ORDERED: ASPIRIN 325 MG TABLET PO SCH (08:00)
[2021-01-07 09:12] LABS: BASO % 0.6 % (0-2.0); HEMATOCRIT 26.8 % (35.4-49); HEMOGLOBIN 9.2 GM/dL (11.7-16.9); LYMPH % 9.5 % (8-40); MCH 31.6 pg (25.7-33.7); MCHC 34.5 g/dl (32.0-35.9); MEAN CELL VOLUME 91.7 fl (80-96); MEAN PLT VOLUME 8.7 fl (7.5-11.1); MONO % 6.5 % (3.8-10.2); NEUT % 80.4 % (42.8-82.8); PLATELET COUNT 156 10^3/uL (134-434); RBC 2.92 M/mm3 (4.00-5.60); WHITE BLOOD COUNT 6.1 K/mm3 (4.0-10.0)
[2021-01-07 09:34] LABS: CALCIUM 8.8 mg/dL (8.5-10.1)
[2021-01-07 09:35] LABS: ALBUMIN 2.9 g/dl (3.4-5.0); BLOOD UREA NITROGEN 20.2 mg/dL (7-18)
[2021-01-07 09:38] LABS: CREATININE 1.2 mg/dL (0.55-1.3)
[2021-01-07 09:40] LABS: BILIRUBIN,TOTAL 0.8 mg/dL (0.2-1)
[2021-01-07] MEDS: FERROUS SO4 325 MG TABLET (FP) PO SCH (10:00)
[2021-01-07] MEDS: CYANOCOBALAMIN 1,000 MCG TABLET (FP) PO SCH (10:00)
[2021-01-07] MEDS: ZINC SULFATE 220 MG CAPSULE (FP) PO SCH (10:00)
[2021-01-07] MEDS: PANTOPRAZOLE 40 MG TABLET PO SCH (10:01)
[2021-01-07] MEDS: ASPIRIN 325 MG TABLET PO SCH (10:01)
[2021-01-07] MEDS: TAMSULOSIN HCL 0.4 MG CAP PO SCH ×2 (10:01→21:36)
[2021-01-07] MEDS: LIDOCAINE 5% TOPICAL PATCH TP SCH (15:43)
[2021-01-07] MEDS: DEXTROSE 5%-NORMAL SALINE 1,000 ML IV SCH ×2 (16:57→21:36)
[2021-01-07] MEDS: MAG HYDROX/AL HYDROX/SIMETH 30 ML UNIT-DOSE CUP PO PRN ×2 (17:07→23:38)
[2021-01-07] MEDS: SENNOSIDES 8.6MG TABLET (FP) PO SCH (21:35)
[2021-01-07] MEDS: MELATONIN 1 MG TABLET PO SCH (21:35)
[2021-01-07] MEDS: BICALUTAMIDE 50 MG TABLET (FP) PO SCH (21:35)
[2021-01-07] MEDS: ATORVASTATIN CA 10 MG TABLET (FP) PO SCH (21:35)
[2021-01-07] MEDS ORDERED: LIDOCAINE PATCH REMOVAL MC SCH (22:00)
[2021-01-08] MEDS ORDERED: MELATONIN 1 MG TABLET PO ONE (00:10)
[2021-01-08] MEDS ORDERED: PT OWN MED DRAWER 7, Y5N ONE (06:16)
[2021-01-08] MEDS: ACETAMINOPHEN 1000 MG/100 ML VIAL IVPB PRN ×2 (06:24→14:47)
[2021-01-08] MEDS: INSULIN SLIDING SCALE (NOVOLOG) 1 VIAL SQ SCH ×3 (06:24→17:52)
[2021-01-08] MEDS: CARBIDOPA/LEVODOPA 25/100 TABLET (FP) PO SCH ×2 (06:56→14:42)
[2021-01-08] MEDS: LEVOTHYROXINE NA 150 MCG TABLET PO SCH (06:56)
[2021-01-08] MEDS: NITROFURANTOIN MACROCRYSTAL 50 MG CAPSULE (FP) PO SCH ×3 (06:56→17:52)
[2021-01-08] MEDS: CYANOCOBALAMIN 1,000 MCG TABLET (FP) PO SCH (09:10)
[2021-01-08] MEDS: ZINC SULFATE 220 MG CAPSULE (FP) PO SCH (09:11)
[2021-01-08] MEDS: FERROUS SO4 325 MG TABLET (FP) PO SCH (09:11)
[2021-01-08] MEDS: LIDOCAINE 5% TOPICAL PATCH TP SCH (09:11)
[2021-01-08] MEDS: TAMSULOSIN HCL 0.4 MG CAP PO SCH (09:11)
[2021-01-08] MEDS: PANTOPRAZOLE 40 MG TABLET PO SCH (09:11)
[2021-01-08] MEDS: ASPIRIN 325 MG TABLET PO SCH (09:11)
[2021-01-08 09:35] LABS: HEMATOCRIT 26.5 % (35.4-49); HEMOGLOBIN 9.2 GM/dL (11.7-16.9); MCH 31.6 pg (25.7-33.7); MCHC 34.8 g/dl (32.0-35.9); MEAN CELL VOLUME 90.8 fl (80-96); MEAN PLT VOLUME 8.5 fl (7.5-11.1); PLATELET COUNT 157 10^3/uL (134-434); RBC 2.92 M/mm3 (4.00-5.60); WHITE BLOOD COUNT 6.7 K/mm3 (4.0-10.0)
[2021-01-08 09:50] LABS: CHLORIDE 100 mmol/L (98-107); SODIUM 133 mmol/L (136-145)
[2021-01-08 10:03] LABS: BILIRUBIN,TOTAL 0.7 mg/dL (0.2-1); TOT PROT 6.1 g/dl (6.4-8.2)
[2021-01-08 10:04] LABS: ALK PHOS 138 U/L (45-117)
[2021-01-08 10:05] LABS: BLOOD UREA NITROGEN 17.1 mg/dL (7-18)
[2021-01-08 10:06] LABS: CALCIUM 9.1 mg/dL (8.5-10.1); SGOT/AST 15 U/L (15-37); SGPT/ALT < 6 U/L (13-61)
[2021-01-08 10:07] LABS: ALBUMIN 2.7 g/dl (3.4-5.0); ANION GAP 10 MMOL/L (8-16); CO2 23 mmol/L (21-32); CREATININE 1.1 mg/dL (0.55-1.3); IRON SERUM 15 ug/dL (50-175); MAGNESIUM 1.6 mg/dL (1.8-2.4)
[2021-01-08 10:08] LABS: GLUCOSE,RANDOM 119 mg/dL (74-106)
[2021-01-08 10:10] LABS: TOTAL IRON BINDING CAPACITY 227 ug/dL (250-450)
[2021-01-08] MEDS: MAG HYDROX/AL HYDROX/SIMETH 30 ML UNIT-DOSE CUP PO PRN (11:25)
[2021-01-08 15:47] VITALS: BP 149/91; PULSE 89; TEMP 99.3
[2021-01-08] MEDS ORDERED: MELATONIN 1 MG TABLET PO SCH (22:00)
== END 2021-01-08 20:24 | DRG 522 ==
LOC: JER 13:58 → JERBED 18:17 → J8W 01-06 00:58
PROVIDERS: ATTEND Family Medicine
PROC: 30233N1 Transfusion of Nonautologous Red Blood Cells into Peripheral Vein, Percutaneous Approach (ICD-10-PCS; 2021-01-06)
PROC: 0SRS0JZ Replacement of Left Hip Joint, Femoral Surface with Synthetic Substitute, Open Approach (ICD-10-PCS; principal; 2021-01-06 13:00)
DX: S72.002A Fracture of unspecified part of neck of left femur, initial encounter for closed fracture (principal); N17.9 Acute kidney failure, unspecified; I13.0 Hypertensive heart and chronic kidney disease with heart failure and stage 1 through stage 4 chronic kidney disease, or unspecified chronic kidney disease; E11.9 Type 2 diabetes mellitus without complications; E78.5 Hyperlipidemia, unspecified; Z85.46 Personal history of malignant neoplasm of prostate; E03.9 Hypothyroidism, unspecified; G20 Parkinson's disease; N18.9 Chronic kidney disease, unspecified; D64.9 Anemia, unspecified; W19.XXXA Unspecified fall, initial encounter; Y93.9 Activity, unspecified; Y92.89 Other specified places as the place of occurrence of the external cause; Y99.9 Unspecified external cause status; N40.0 Benign prostatic hyperplasia without lower urinary tract symptoms; I50.9 Heart failure, unspecified
CPT/HCPCS: 36415; 36430; 73502-TC-LT-FY; 73523-TC-FY; 80048; 80053; 82728; 82962; 83540; 83550; 83735; 84100; 84443; 85025; 85027; 85610; 85730; 86850; 86900; 86901; 86922; 93005; 93010; 94010; 94760; 97116-GP; 97162-GP; 99285-25; C9803; J0131; P9058; U0003; U0005

== ENCOUNTER 2021-03-16 12:57 | Emergency (ER) | payer OTHER ==
[2021-03-16 13:05] VITALS: BP 132/78; PULSE 84; TEMP 98.1; BMI 30.4
[2021-03-16 14:33] LABS: BASO % 0.6 % (0-2.0); EOS % 1.4 % (0-4.5); HEMATOCRIT 25.8 % (35.4-49); HEMOGLOBIN 8.8 GM/dL (11.7-16.9); LYMPH % 15.8 % (8-40); MCH 30.2 pg (25.7-33.7); MEAN CELL VOLUME 88.8 fl (80-96); MEAN PLT VOLUME 8.8 fl (7.5-11.1); MONO % 6.9 % (3.8-10.2); NEUT % 75.3 % (42.8-82.8); PLATELET COUNT 167 10^3/uL (134-434); RBC 2.91 M/mm3 (4.00-5.60); RDW 17.5 % (11.9-15.9); WHITE BLOOD COUNT 5.9 K/mm3 (4.0-10.0)
[2021-03-16 14:39] LABS: INR 1.14 (0.83-1.09); PROTHROMBIN TIME (PATIENT) 12.8 SEC (9.7-13.0)
[2021-03-16 14:51] LABS: CHLORIDE 101 mmol/L (98-107); SODIUM 135 mmol/L (136-145)
[2021-03-16 14:53] LABS: ALBUMIN 3.7 g/dl (3.4-5.0); ANION GAP 10 MMOL/L (8-16); BLOOD UREA NITROGEN 23.1 mg/dL (7-18); CALCIUM 9.9 mg/dL (8.5-10.1); CO2 25 mmol/L (21-32); GLUCOSE,RANDOM 106 mg/dL (74-106)
[2021-03-16 14:56] LABS: SGOT/AST 13 U/L (15-37); SGPT/ALT 17 U/L (13-61)
[2021-03-16 14:57] LABS: CREATININE 1.4 mg/dL (0.55-1.3)
[2021-03-16 14:58] LABS: BILIRUBIN,TOTAL 0.4 mg/dL (0.2-1); TOT PROT 7.4 g/dl (6.4-8.2)
[2021-03-16 14:59] LABS: ALK PHOS 154 U/L (45-117); LDH 148 U/L (87-246)
== END 2021-03-16 15:32 | disposition home or self-care (01) ==
LOC: JER 12:57
DX: U07.1 COVID-19 (principal)
CPT/HCPCS: 36415; 71046-TC-FY; 80053; 82550; 82728; 83615; 84484; 85025; 85379; 85610; 86140; 99285-25

== ENCOUNTER 2021-06-27 05:03 | Inpatient (IN) | payer OTHER ==
[2021-06-27] MEDS ORDERED: SODIUM CHLORIDE 0.9% 500 ML INFUS.BAG IV ONE (05:41)
[2021-06-27 05:51] LABS: BASO % 0.6 % (0-2.0); EOS % 2.1 % (0-4.5); HEMATOCRIT 25.9 % (35.4-49); LYMPH % 22.3 % (8-40); MCHC 34.6 g/dl (32.0-35.9); MEAN CELL VOLUME 92.6 fl (80-96); MEAN PLT VOLUME 8.6 fl (7.5-11.1); MONO % 5.1 % (3.8-10.2); NEUT % 69.9 % (42.8-82.8); PLATELET COUNT 160 10^3/uL (134-434); RDW 16.6 % (11.9-15.9); WHITE BLOOD COUNT 7.3 K/mm3 (4.0-10.0)
[2021-06-27 06:12] LABS: INR 1.05 (0.83-1.09); PROTHROMBIN TIME (PATIENT) 12.1 SEC (9.7-13.0)
[2021-06-27 06:13] LABS: CALCIUM 9.2 mg/dL (8.5-10.1)
[2021-06-27 06:15] LABS: ACTIVATED PTT 26.2 SECONDS (25.2-36.5); ALBUMIN 3.6 g/dl (3.4-5.0); BLOOD UREA NITROGEN 30.2 mg/dL (7-18)
[2021-06-27 06:17] LABS: CREATININE 1.3 mg/dL (0.55-1.3)
[2021-06-27 06:19] LABS: BILIRUBIN,TOTAL 0.3 mg/dL (0.2-1); TOT PROT 6.3 g/dl (6.4-8.2)
[2021-06-27] MEDS ORDERED: morphine CARPU-JECT 4 MG/1 ML DISP.SYRIN IVPUSH ONE (08:47)
[2021-06-27] MEDS ORDERED: morphine SULFATE 4 MG/ML VIAL ONE (09:19)
[2021-06-27] MEDS ORDERED: oxyCODONE HCL 5 MG TABLET PO ONE (12:45)
[2021-06-27] MEDS ORDERED: HYDROmorphone HCL CARPU-JECT 2 MG/1 ML DISP.SYRIN IVPUSH PRN (13:10)
[2021-06-27] MEDS ORDERED: ENOXAPARIN NA (PORCINE) 40 MG/0.4 ML DISP.SYRIN SQ SCH (13:15)
[2021-06-27 16:08] LABS: EPI CELLS 27 /uL (0-25.1); HYALINE CASTS 3 /uL (0-3.1); URINE APPEARANCE CLEAR; URINE BACTERIA 4 /uL (0-1359); URINE BILIRUBIN NEGATIVE (NEGATIVE); URINE COLOR YELLOW; URINE GLUCOSE (UA) NEGATIVE (NEGATIVE); URINE KETONE NEGATIVE (NEGATIVE); URINE LEUK ESTERASE 1+ (NEGATIVE); URINE NITRITE NEGATIVE (NEGATIVE); URINE PROTEIN NEGATIVE (NEGATIVE); URINE RBC 29 /uL (0-23.9); URINE UROBILINOGEN 0.2 mg/dL (0.2-1.0); URINE WBC 145 /uL (0-25.8)
[2021-06-27 18:45] VITALS: BMI 32.3
[2021-06-27] MEDS: HYDROmorphone HCl 2 MG/ML VIAL IVPUSH PRN (18:49)
[2021-06-27] MEDS: TAMSULOSIN HCL 0.4 MG CAP PO SCH (18:49)
[2021-06-27] MEDS ORDERED: ONDANSETRON *ODT* 4 MG TABLET SL ONE ×2 (19:54→22:15)
[2021-06-27] MEDS: carBAMazepine 100 MG TAB.CHEW PO SCH (22:00)
[2021-06-27] MEDS ORDERED: SENNOSIDES 8.6MG TABLET (FP) PO SCH (22:00)
[2021-06-27] MEDS: MELATONIN 5 MG TABLETS PO SCH (22:03)
[2021-06-27] MEDS: ATORVASTATIN CA 10 MG TABLET (FP) PO SCH (22:04)
[2021-06-28] MEDS: HYDROmorphone HCl 2 MG/ML VIAL IVPUSH PRN ×2 (04:46→14:03)
[2021-06-28] MEDS: SENNOSIDES 8.6MG TABLET (FP) PO SCH ×2 (04:48→21:17)
[2021-06-28 07:36] LABS: BLOOD UREA NITROGEN 31.4 mg/dL (7-18); CALCIUM 8.5 mg/dL (8.5-10.1); MAGNESIUM 1.7 mg/dL (1.8-2.4)
[2021-06-28 07:39] LABS: CREATININE 1.3 mg/dL (0.55-1.3)
[2021-06-28 07:40] LABS: TOT PROT 5.5 g/dl (6.4-8.2)
[2021-06-28 07:42] LABS: BILIRUBIN,TOTAL 0.7 mg/dL (0.2-1)
[2021-06-28 07:44] LABS: BASO % 0.6 % (0-2.0); EOS % 1.7 % (0-4.5); HEMATOCRIT 20.3 % (35.4-49); LYMPH % 17.5 % (8-40); MCH 31.7 pg (25.7-33.7); MCHC 34.1 g/dl (32.0-35.9); MEAN CELL VOLUME 92.7 fl (80-96); MEAN PLT VOLUME 8.9 fl (7.5-11.1); MONO % 5.8 % (3.8-10.2); NEUT % 74.4 % (42.8-82.8); PLATELET COUNT 136 10^3/uL (134-434); RBC 2.19 M/mm3 (4.00-5.60); RDW 16.7 % (11.9-15.9)
[2021-06-28 07:50] LABS: HEMOGLOBIN 6.9 GM/dL (11.7-16.9)
[2021-06-28] MEDS ORDERED: FUROSEMIDE 40 MG/4 ML INJECTABLE VIAL IVPUSH ONE (08:00)
[2021-06-28] MEDS ORDERED: PANTOPRAZOLE 40 MG TABLET PO SCH (10:00)
[2021-06-28] MEDS ORDERED: PANTOPRAZOLE SODIUM 40 MG VIAL IVPUSH SCH (10:00)
[2021-06-28] MEDS ORDERED: LEVOTHYROXINE NA 150 MCG TABLET PO SCH (10:00)
[2021-06-28] MEDS: sitaGLIPtin PHOSPHATE 50 MG TABLET PO SCH (10:02)
[2021-06-28] MEDS: TAMSULOSIN HCL 0.4 MG CAP PO SCH ×2 (10:02→21:15)
[2021-06-28] MEDS: carBAMazepine 100 MG TAB.CHEW PO SCH ×2 (10:03→21:17)
[2021-06-28] MEDS: BICALUTAMIDE 50 MG TABLET (FP) PO SCH (10:03)
[2021-06-28 15:57] LABS: HEMATOCRIT 24.6 % (35.4-49); HEMOGLOBIN 8.4 GM/dL (11.7-16.9); MCH 30.6 pg (25.7-33.7); MCHC 34.1 g/dl (32.0-35.9); MEAN CELL VOLUME 89.7 fl (80-96); MEAN PLT VOLUME 8.3 fl (7.5-11.1); PLATELET COUNT 138 10^3/uL (134-434); RBC 2.74 M/mm3 (4.00-5.60); RDW 18.8 % (11.9-15.9); WHITE BLOOD COUNT 8.9 K/mm3 (4.0-10.0)
[2021-06-28] MEDS ORDERED: ONDANSETRON 4 MG TABLET PO ONE (19:23)
[2021-06-28] MEDS: MELATONIN 5 MG TABLETS PO SCH (21:17)
[2021-06-28] MEDS: ATORVASTATIN CA 10 MG TABLET (FP) PO SCH (21:17)
[2021-06-28] MEDS: POLYETHYLENE GLYCOL (HEALTHYLAX) 3350 17 GM PACKET PO SCH (21:17)
[2021-06-28] MEDS: PANTOPRAZOLE 40 MG TABLET PO SCH (21:17)
[2021-06-28] MEDS ORDERED: SENNOSIDES 8.6MG TABLET (FP) PO SCH (22:00)
[2021-06-29] MEDS ORDERED: FUROSEMIDE 40 MG/4 ML INJECTABLE VIAL ONE (01:05)
[2021-06-29] MEDS: HYDROmorphone HCl 2 MG/ML VIAL IVPUSH PRN ×2 (01:13→22:00)
[2021-06-29] MEDS ORDERED: LEVOTHYROXINE NA 150 MCG TABLET PO SCH (08:25)
[2021-06-29 09:05] LABS: CALCIUM 8.6 mg/dL (8.5-10.1)
[2021-06-29 09:06] LABS: ALBUMIN 3.1 g/dl (3.4-5.0); BLOOD UREA NITROGEN 26.8 mg/dL (7-18)
[2021-06-29 09:09] LABS: CREATININE 1.2 mg/dL (0.55-1.3)
[2021-06-29 09:11] LABS: BILIRUBIN,TOTAL 0.7 mg/dL (0.2-1); TOT PROT 5.8 g/dl (6.4-8.2)
[2021-06-29] MEDS: carBAMazepine 100 MG TAB.CHEW PO SCH ×2 (09:29→22:02)
[2021-06-29] MEDS: sitaGLIPtin PHOSPHATE 50 MG TABLET PO SCH (09:30)
[2021-06-29] MEDS: BICALUTAMIDE 50 MG TABLET (FP) PO SCH (09:30)
[2021-06-29] MEDS: PANTOPRAZOLE 40 MG TABLET PO SCH ×2 (09:30→22:02)
[2021-06-29] MEDS ORDERED: LEVOTHYROXINE NA 25 MCG TABLET (FP) ONE (09:31)
[2021-06-29] MEDS ORDERED: LEVOTHYROXINE NA 150 MCG TABLET ONE (09:31)
[2021-06-29] MEDS: LEVOTHYROXINE 150 MCG, LEVOTHYROXINE 25 MCG PO SCH (09:35)
[2021-06-29] MEDS: TAMSULOSIN HCL 0.4 MG CAP PO SCH ×2 (09:44→22:02)
[2021-06-29 11:34] LABS: BASO % 0.6 % (0-2.0); EOS % 2.2 % (0-4.5); HEMATOCRIT 25.5 % (35.4-49); HEMOGLOBIN 8.9 GM/dL (11.7-16.9); LYMPH % 20.5 % (8-40); MCHC 34.7 g/dl (32.0-35.9); MEAN CELL VOLUME 89.4 fl (80-96); MEAN PLT VOLUME 8.8 fl (7.5-11.1); MONO % 6.3 % (3.8-10.2); NEUT % 70.4 % (42.8-82.8); PLATELET COUNT 124 10^3/uL (134-434); RBC 2.85 M/mm3 (4.00-5.60); WHITE BLOOD COUNT 7.2 K/mm3 (4.0-10.0)
[2021-06-29] MEDS: POLYETHYLENE GLYCOL (HEALTHYLAX) 3350 17 GM PACKET PO SCH ×2 (17:00→22:02)
[2021-06-29] MEDS: SENNOSIDES 8.6MG TABLET (FP) PO SCH (22:01)
[2021-06-29] MEDS: ATORVASTATIN CA 10 MG TABLET (FP) PO SCH (22:02)
[2021-06-29] MEDS: MELATONIN 5 MG TABLETS PO SCH (22:02)
[2021-06-30] MEDS ORDERED: LEVOTHYROXINE NA 25 MCG TABLET (FP) ONE (05:36)
[2021-06-30] MEDS ORDERED: LEVOTHYROXINE NA 150 MCG TABLET ONE (05:36)
[2021-06-30] MEDS: LEVOTHYROXINE 150 MCG, LEVOTHYROXINE 25 MCG PO SCH ×2 (05:50→06:03)
[2021-06-30 07:15] LABS: BASO % 0.6 % (0-2.0); EOS % 2.8 % (0-4.5); HEMATOCRIT 24.5 % (35.4-49); HEMOGLOBIN 8.4 GM/dL (11.7-16.9); LYMPH % 19.7 % (8-40); MCH 30.9 pg (25.7-33.7); MCHC 34.1 g/dl (32.0-35.9); MEAN CELL VOLUME 90.5 fl (80-96); MONO % 6.2 % (3.8-10.2); NEUT % 70.7 % (42.8-82.8); PLATELET COUNT 133 10^3/uL (134-434); RBC 2.71 M/mm3 (4.00-5.60); RDW 18.4 % (11.9-15.9); WHITE BLOOD COUNT 7.5 K/mm3 (4.0-10.0)
[2021-06-30 07:54] LABS: ALBUMIN 2.9 g/dl (3.4-5.0); BLOOD UREA NITROGEN 27.8 mg/dL (7-18); CALCIUM 8.6 mg/dL (8.5-10.1)
[2021-06-30 07:58] LABS: CREATININE 1.2 mg/dL (0.55-1.3)
[2021-06-30 07:59] LABS: BILIRUBIN,TOTAL 0.9 mg/dL (0.2-1); TOT PROT 5.7 g/dl (6.4-8.2)
[2021-06-30] MEDS: sitaGLIPtin PHOSPHATE 50 MG TABLET PO SCH (10:17)
[2021-06-30] MEDS: POLYETHYLENE GLYCOL (HEALTHYLAX) 3350 17 GM PACKET PO SCH ×2 (10:17→23:12)
[2021-06-30] MEDS: PANTOPRAZOLE 40 MG TABLET PO SCH ×2 (10:17→23:13)
[2021-06-30] MEDS: BICALUTAMIDE 50 MG TABLET (FP) PO SCH (10:18)
[2021-06-30] MEDS: ENOXAPARIN NA (PORCINE) 40 MG/0.4 ML DISP.SYRIN SQ SCH (10:18)
[2021-06-30] MEDS: HYDROmorphone HCl 2 MG/ML VIAL IVPUSH PRN ×2 (15:31→23:13)
[2021-06-30 19:06] LABS: GLIADIN ANTIBODY IGA 4 units (0-19); GLIADIN ANTIBODY IGG 1 units (0-19); TRANSGLUTAMINASE IGG < 2 U/mL (0-5)
[2021-06-30] MEDS: MELATONIN 5 MG TABLETS PO SCH (23:12)
[2021-06-30] MEDS: ATORVASTATIN CA 10 MG TABLET (FP) PO SCH (23:12)
[2021-06-30] MEDS: SENNOSIDES 8.6MG TABLET (FP) PO SCH (23:13)
[2021-07-01] MEDS ORDERED: diphenhydrAMINE HCL 25 MG CAPSULE (FP) PO ONE (02:38)
[2021-07-01] MEDS ORDERED: LEVOTHYROXINE NA 150 MCG TABLET ONE (05:50)
[2021-07-01] MEDS ORDERED: LEVOTHYROXINE NA 25 MCG TABLET (FP) ONE (05:50)
[2021-07-01] MEDS: LEVOTHYROXINE 150 MCG, LEVOTHYROXINE 25 MCG PO SCH (06:38)
[2021-07-01] MEDS: sitaGLIPtin PHOSPHATE 50 MG TABLET PO SCH (10:07)
[2021-07-01] MEDS: BICALUTAMIDE 50 MG TABLET (FP) PO SCH (10:07)
[2021-07-01] MEDS: PANTOPRAZOLE 40 MG TABLET PO SCH ×2 (10:07→21:01)
[2021-07-01] MEDS: ENOXAPARIN NA (PORCINE) 40 MG/0.4 ML DISP.SYRIN SQ SCH (10:07)
[2021-07-01] MEDS: POLYETHYLENE GLYCOL (HEALTHYLAX) 3350 17 GM PACKET PO SCH ×2 (10:08→21:01)
[2021-07-01 11:16] LABS: BASO % 0.7 % (0-2.0); EOS % 2.8 % (0-4.5); HEMATOCRIT 27.3 % (35.4-49); HEMOGLOBIN 9.4 GM/dL (11.7-16.9); LYMPH % 14.4 % (8-40); MCH 31.1 pg (25.7-33.7); MCHC 34.4 g/dl (32.0-35.9); MEAN CELL VOLUME 90.3 fl (80-96); MEAN PLT VOLUME 8.8 fl (7.5-11.1); MONO % 4.5 % (3.8-10.2); NEUT % 77.6 % (42.8-82.8); PLATELET COUNT 209 10^3/uL (134-434); RBC 3.02 M/mm3 (4.00-5.60); RDW 17.7 % (11.9-15.9); WHITE BLOOD COUNT 9.9 K/mm3 (4.0-10.0)
[2021-07-01] MEDS: MELATONIN 5 MG TABLETS PO SCH (21:01)
[2021-07-01] MEDS: SENNOSIDES 8.6MG TABLET (FP) PO SCH (21:01)
[2021-07-01] MEDS: ATORVASTATIN CA 10 MG TABLET (FP) PO SCH (21:01)
[2021-07-01] MEDS: HYDROmorphone HCl 2 MG/ML VIAL IVPUSH PRN (21:11)
[2021-07-02] MEDS ORDERED: diphenhydrAMINE HCL 25 MG CAPSULE (FP) PO ONE (02:25)
[2021-07-02] MEDS: HYDROmorphone HCl 2 MG/ML VIAL IVPUSH PRN (02:40)
[2021-07-02] MEDS ORDERED: LEVOTHYROXINE NA 25 MCG TABLET (FP) ONE (06:02)
[2021-07-02] MEDS ORDERED: LEVOTHYROXINE NA 150 MCG TABLET ONE (06:02)
[2021-07-02] MEDS ORDERED: ONDANSETRON 4 MG/2 ML VIAL IVPUSH ONE (06:35)
[2021-07-02] MEDS ORDERED: traMADol HCL 50 MG TABLET PO PRN (06:48)
[2021-07-02] MEDS: LEVOTHYROXINE 150 MCG, LEVOTHYROXINE 25 MCG PO SCH (06:59)
[2021-07-02] MEDS ORDERED: ONDANSETRON 4 MG/2 ML VIAL IVPUSH PRN (07:35)
[2021-07-02] MEDS: ENOXAPARIN NA (PORCINE) 40 MG/0.4 ML DISP.SYRIN SQ SCH (09:24)
[2021-07-02] MEDS: POLYETHYLENE GLYCOL (HEALTHYLAX) 3350 17 GM PACKET PO SCH ×2 (09:25→21:16)
[2021-07-02] MEDS: sitaGLIPtin PHOSPHATE 50 MG TABLET PO SCH (09:25)
[2021-07-02] MEDS: LORATADINE 10 MG TABLET PO SCH (09:25)
[2021-07-02] MEDS: BICALUTAMIDE 50 MG TABLET (FP) PO SCH (09:25)
[2021-07-02] MEDS: PANTOPRAZOLE 40 MG TABLET PO SCH ×2 (09:25→21:16)
[2021-07-02] MEDS: SENNOSIDES 8.6MG TABLET (FP) PO SCH (21:16)
[2021-07-02] MEDS: ATORVASTATIN CA 10 MG TABLET (FP) PO SCH (21:16)
[2021-07-02] MEDS: MELATONIN 5 MG TABLETS PO SCH (21:17)
[2021-07-03] MEDS ORDERED: LEVOTHYROXINE NA 25 MCG TABLET (FP) ONE (04:59)
[2021-07-03] MEDS ORDERED: LEVOTHYROXINE NA 150 MCG TABLET ONE (04:59)
[2021-07-03] MEDS: LEVOTHYROXINE 150 MCG, LEVOTHYROXINE 25 MCG PO SCH ×2 (05:33→06:04)
[2021-07-03] MEDS ORDERED: TAMSULOSIN HCL 0.4 MG CAP PO SCH ×2 (08:30)
[2021-07-03] MEDS ORDERED: IRON SUCROSE INJECTION 200 MG in SODIUM CHLORIDE 90 ML IVPB ONE (09:15)
[2021-07-03] MEDS: PANTOPRAZOLE 40 MG TABLET PO SCH (09:41)
[2021-07-03] MEDS: LORATADINE 10 MG TABLET PO SCH (09:41)
[2021-07-03] MEDS: POLYETHYLENE GLYCOL (HEALTHYLAX) 3350 17 GM PACKET PO SCH (09:42)
[2021-07-03] MEDS: sitaGLIPtin PHOSPHATE 50 MG TABLET PO SCH (09:42)
[2021-07-03] MEDS: ENOXAPARIN NA (PORCINE) 40 MG/0.4 ML DISP.SYRIN SQ SCH (09:42)
[2021-07-03] MEDS: BICALUTAMIDE 50 MG TABLET (FP) PO SCH (09:45)
[2021-07-03 16:03] VITALS: BP 143/9; PULSE 88; TEMP 99
[2021-07-03] MEDS ORDERED: PRAMIPEXOLE DIHYDROCHLORIDE 0.125 MG TABLET PO SCH (22:00)
== END 2021-07-03 18:55 | disposition home health service (06) | DRG 563 ==
LOC: JER 05:03 → JERBED 06:07 → J4W 11:25
PROVIDERS: ADMIT Family Medicine; ATTEND Family Medicine
DX: S42.201A Unspecified fracture of upper end of right humerus, initial encounter for closed fracture (principal); S42.252A Displaced fracture of greater tuberosity of left humerus, initial encounter for closed fracture; M97.31XA Periprosthetic fracture around internal prosthetic right shoulder joint, initial encounter; G20 Parkinson's disease; N40.0 Benign prostatic hyperplasia without lower urinary tract symptoms; W19.XXXA Unspecified fall, initial encounter; Y93.89 Activity, other specified; Y92.000 Kitchen of unspecified non-institutional (private) residence as the place of occurrence of the external cause; R55 Syncope and collapse; Y99.8 Other external cause status; E03.9 Hypothyroidism, unspecified; I44.0 Atrioventricular block, first degree; Z79.84 Long term (current) use of oral hypoglycemic drugs; D64.9 Anemia, unspecified; I11.0 Hypertensive heart disease with heart failure; I50.9 Heart failure, unspecified; C61 Malignant neoplasm of prostate; G25.81 Restless legs syndrome; E11.42 Type 2 diabetes mellitus with diabetic polyneuropathy; K59.00 Constipation, unspecified
CPT/HCPCS: 36415; 36430; 36511; 70450-TC; 70486-TC; 71045-TC-FY; 72125-TC; 72170-TC-FY; 73030-TC-LT-FY; 73030-TC-RT-FY; 73060-TC-RT-FY; 73200-TC-RT; 80053; 80061; 81003; 82607; 82728; 82746; 82784; 82962; 83036; 83516; 83540; 83550; 83735; 84155; 84165; 84443; 84484; 85025; 85027; 85045; 85610; 85730; 86334; 86850; 86900; 86901; 86922; 87086; 93005; 93010; 93306-TC; 97116-GP; 97162-GP; 99285-25; C9803-CS; J1756; P9038; P9058; Q0162; U0003; U0005

== ENCOUNTER 2022-11-30 11:06 | Day surgery (SDC) | payer OTHER ==
[~2022-11-30 11:06] MED LIST: ACETAMINOPHEN 325 MG TABLET (FP) PO ONE; ZOLEDRONIC ACID/MAN/WATER 5 MG/100 ML INFUS..BTL IVPB ONE
[2022-11-30 16:59] VITALS: RESP 18; TEMP 98.2
[2022-12-01 07:59] VITALS: BP 136/66; PULSE 58
== END 2022-11-30 13:30 | disposition home or self-care (01) ==
LOC: JINFUSION 11:06 → J7W 11:07 → JINFUSION 13:30
PROVIDERS: ATTEND Family Medicine
PROC: 3E033GC Introduction of Other Therapeutic Substance into Peripheral Vein, Percutaneous Approach (ICD-10-PCS; principal; 2022-11-30)
DX: M81.0 Age-related osteoporosis without current pathological fracture (principal)
CPT/HCPCS: 96365; J3489